=== PATIENT | male | born 1960 | race Caucasian/White ===

== ENCOUNTER → 2016-08-12 | Outpatient (CLI) | payer BC ==
--- NOTE | 2016-08-12 15:20 | NM ---
EXAMINATION TYPE: NM bone/joint limited DATE OF EXAM: 08/12/2016 3:13 PM COMPARISON: NONE HISTORY: Lower back pain TECHNIQUE: After the intravenous administration of 27 mCi Tc 99m MDP. Images acquired 3 hours post injection. Multiple views of pelvis and lumbar spine are submitted. There is no abnormal uptake within the visualized osseous structures to suggest acute process. IMPRESSION: No acute osseous abnormality.
== END | disposition home or self-care (01) ==
LOC: RADNMMAIN 11:15
PROVIDERS: ATTEND Orthopaedic Surgery Orthopaedic Surgery of the Spine
DX: M51.17 Intervertebral disc disorders with radiculopathy, lumbosacral region (principal); M51.16 Intervertebral disc disorders with radiculopathy, lumbar region; M47.817 Spondylosis without myelopathy or radiculopathy, lumbosacral region; M70.61 Trochanteric bursitis, right hip; M70.62 Trochanteric bursitis, left hip; M41.26 Other idiopathic scoliosis, lumbar region
CPT/HCPCS: 78300; A9503

== ENCOUNTER → 2016-11-09 | Outpatient (CLI) | payer BC ==
[2016-11-09 08:51] LABS: Basophils # (A) 0.1 k/uL (0-0.2); Basophils % (A) 1 %; CH 33.6; Eosinophils # (A) 0.3 k/uL (0-0.7); Eosinophils % (A) 4 %; HCT 45.4 % (39.0-53.0); HGB 15.8 gm/dL (13.0-17.5); Luc # (Auto) 0.13; Luc % (Auto) 2; Lymphocytes # (A) 1.2 k/uL (1.0-4.8); Lymphocytes % (A) 21 %; MCH 33.5 pg (25.0-35.0); MCHC 34.8 g/dL (31.0-37.0); MCV 96.2 fL (80.0-100.0); Mean Platelet Volume 7.6; Monocytes # (A) 0.6 k/uL (0-1.0); Monocytes % (A) 9 %; Neutrophils # (A) 3.7 k/uL (1.3-7.7); Neutrophils % (A) 63 %; RBC 4.72 m/uL (4.30-5.90); WBC 5.8 k/uL (3.8-10.6); WBC (Perox) 5.29
[2016-11-09 09:01] LABS: ALT 41 U/L (21-72); AST 32 U/L (17-59); Blood Urea Nitrogen 17 mg/dL (9-20); Non-African American GFR(MDRD) >60 (>60 ml/min/1.73 sqM)
[2016-11-09 16:24] LABS: ANA w/Reflex to Titer NEGATIVE (NEGATIVE)
[2016-11-10 14:02] LABS: Cow's Milk IgE Class CLASS II; Egg White IgE 0.36 kU/L (<0.35); Latex IgE Class CLASS 0; Peanut IgE 0.48 kU/L (<0.35); Potato IgE 0.35 kU/L (<0.35); Potato IgE Class CLASS I; Soybean IgE <0.35 kU/L (<0.35)
== END | disposition home or self-care (01) ==
LOC: LABWHC1 08:20
PROVIDERS: ATTEND Nurse Practitioner Family
DX: R60.0 Localized edema (principal); K72.90 Hepatic failure, unspecified without coma; M35.9 Systemic involvement of connective tissue, unspecified
CPT/HCPCS: 36415; 82565; 82785; 83880; 84165; 84443; 84450; 84460; 84520; 85025; 86001; 86003; 86038; 86160; 86161

== ENCOUNTER → 2018-03-04 | Outpatient (CLI) | payer BC ==
--- NOTE | 2018-03-04 17:45 | US ---
EXAMINATION TYPE: US carotid duplex BILAT DATE OF EXAM: 03/04/2018 COMPARISON: NONE CLINICAL HISTORY: R09.89 Other specified symptoms and signs.... Bruit EXAM MEASUREMENTS: RIGHT: Peak Systolic Velocity (PSV) cm/sec ----- Right CCA: 79.0 ----- Right ICA: 71.2 ----- Right ECA: 110.8 ICA/CCA ratio: 0.9 RIGHT: End Diastole cm/sec ----- Right CCA: 26.7 ----- Right ICA: 31.9 ----- Right ECA: 29.2 LEFT: Peak Systolic Velocity (PSV) cm/sec ----- Left CCA: 83.1 ----- Left ICA: 103.0 ----- Left ECA: 117.3 ICA/CCA ratio: 1.2 LEFT: End Diastole cm/sec ----- Left CCA: 34.7 ----- Left ICA: 39.6 ----- Left ECA: 33.3 VERTEBRALS (direction of flow): Right Vertebral: Antegrade Left Vertebral: Antegrade Rhythm: Normal No significant stenosis seen, no elevated velocities. IMPRESSION: There is antegrade flow in the vertebral arteries. The images and measurements suggest 1 0% stenosis in both internal carotid arteries. Criteria for Assigning % of Stenosis / Diameter reduction (Estimation based on the indirect measurements of the internal carotid artery velocities (ICA PSV). 1. Normal (no stenosis)=ICA PSV < 125 cm/s: ratio < 2.0: ICA EDV<40 cm/s. 2. Less than 50% stenosis=ICA PSV < 125 cm/s: ratio < 2.0: ICA EDV<40 cm/s. 3. 50 to 69% stenosis=ICA PSV of 125 to 230 cm/s: ration 2.0 ? 4.0: ICA EDV 40-100 cm/s. 4. Greater than 70% stenosis to near occlusion= ICA PSV > 230 cm/s: ratio > 4.0: ICA EDV > 100 cm/s. 5. Near occlusion= ICA PSV velocities may be low or undetectable: variable ratio and ICA EDV. 6. Total occlusion=unable to detect flow.
== END | disposition home or self-care (01) ==
LOC: RADUSWWP 16:43
PROVIDERS: ATTEND Family Medicine
DX: I65.23 Occlusion and stenosis of bilateral carotid arteries (principal)
CPT/HCPCS: 93880

== ENCOUNTER → 2018-03-07 | Outpatient (CLI) | payer BC ==
--- NOTE | 2018-03-08 09:36 | ECHOF ---
Referral Reason:R09.89 Other specified symptoms and signs... MEASUREMENTS -------- HEIGHT: 182.9 cm WEIGHT: 97.5 kg BP: RVIDd: 3.4 cm (< 3.3) IVSd: 0.8 cm (0.6 - 1.1) LVIDd: 4.9 cm (3.9 - 5.3) LVPWd: 0.8 cm (0.6 - 1.1) IVSs: 1.1 cm LVIDs: 4.0 cm LVPWs: 1.1 cm LAESV Index (A-L): 21.62 ml/m Ao Diam: 4.4 cm (2.0 - 3.7) AV Cusp: 2.4 cm (1.5 - 2.6) LA Diam: 3.0 cm (2.7 - 3.8) MV EXCURSION: 21.800 mm (> 18.000) MV EF SLOPE: 112 mm/s (70 - 150) EPSS: 0.4 cm MV E Howard: 0.77 m/s MV DecT: 213 ms MV A Howard: 0.73 m/s MV E/A Ratio: 1.06 AR PHT: 500 ms RAP: 5.00 mmHg RVSP: 23.14 mmHg FINDINGS -------- Sinus rhythm. This was a technically adequate study. The left ventricular size is normal. Left ventricular wall thickness is normal. There is mild lamin bal hypokinesis of LV . Overall left ventricular systolic function is mildly impaired with, an EF b etween 45 - 50 %. The right ventricle is mildly enlarged. Normal LA size by volume 22+/-6 ml/m2. RA appears enlarged. Aortic valve is trileaflet and is mildly thickened. There is mild aortic regurgitation. There is no evidence of aortic stenosis. The mitral valve leaflets are mildly thickened. There is trace to mild mitral regurgitation. Trace tricuspid regurgitation present. Right ventricular systolic pressure is normal at < 35 mmHg. There is no evidence of pulmonary hypertension. Trace/mild (physiologic) pulmonic regurgitation. The aortic root is mildy dilated up to 3.8 cm. Normal inferior vena cava with normal inspiratory collapse consistent with estimated right atrial pre ssure of 5 mmHg. There is no pericardial effusion. CONCLUSIONS -------- 1. Sinus rhythm. 2. This was a technically adequate study. 3. The left ventricular size is normal. 4. Left ventricular wall thickness is normal. 5. There is mild global hypokinesis of LV . 6. Overall left ventricular systolic function is mildly impaired with, an EF between 45 - 50 %. 7. The right ventricle is mildly enlarged. 8. Normal LA size by volume 22+/-6 ml/m2. 9. RA appears enlarged. 10. Aortic valve is trileaflet and is mildly thickened. 11. There is mild aortic regurgitation. 12. The mitral valve leaflets are mildly thickened. 13. There is trace to mild mitral regurgitation. 14. Trace tricuspid regurgitation present. 15. Right ventricular systolic pressure is normal at < 35 mmHg. 16. There is no evidence of pulmonary hypertension. 17. Trace/mild (physiologic) pulmonic regurgitation. 18. The aortic root is mildy dilated up to 3.8 cm. 19. There is no pericardial effusion. LAUNCH CHECK OUT: Jhonny Schmidt RDCS
== END | disposition home or self-care (01) ==
LOC: RADECHMAIN 15:29
PROVIDERS: ATTEND Family Medicine
DX: I11.9 Hypertensive heart disease without heart failure (principal); I08.0 Rheumatic disorders of both mitral and aortic valves
CPT/HCPCS: 93306

== ENCOUNTER → 2018-06-03 | Outpatient (CLI) | payer BC ==
--- NOTE | 2018-06-03 10:13 | MR ---
EXAMINATION TYPE: MR lumbar spine wo con DATE OF EXAM: 06/03/2018 COMPARISON: Prior lumbar MRI 04/12/2014 HISTORY: Low back pain, Scoliosis TECHNIQUE: Multiplanar, multisequence images of the lumbar spine were acquired. L1-L2: Normal disc appearance without desiccation. No herniation, protrusion or disc bulging. No ca nal stenosis is present. Foramina are patent bilaterally. L2-L3: Stable in appearance. Mild posterior broad-based disc bulge causes slight anterior mass effect on the thecal sac, no significant central stenosis or foraminal encroachment. L3-L4: Posterior broad-based disc bulge causes mild anterior mass effect on the thecal sac. No signif icant central stenosis or foraminal encroachment. L4-L5: Left posterior paracentral disc bulge is again noted extending to cause some left-sided forami nal encroachment. No significant central stenosis. Lateral extension endplate disc complex also cause s some right-sided foraminal encroachment as on prior. L5-S1: Small posterior disc bulge is noted, no significant central stenosis or change in foraminal en croachment which is again seen due to lateral extension of endplate disc complex bilaterally. Some fa cet arthropathy changes are stable. Lumbar segments are intact. No paraspinal masses are identified. Conus medullaris has a normal appe arance. Lumbar vertebral bodies show preserved height and alignment, there is mild multilevel spondyl osis present with minimal endplate discogenic marrow signal change. Intervertebral disc heights show a similar appearance, similar signal present at the discs. Prominence of the central spinal canal marcelo ws a similar appearance. IMPRESSION: Findings are similar to prior exam. Degenerative disc disease, foraminal encroachment and additional findings above.
== END | disposition home or self-care (01) ==
LOC: RADMRIMAIN 08:06
PROVIDERS: ATTEND Physical Medicine & Rehabilitation
DX: M51.17 Intervertebral disc disorders with radiculopathy, lumbosacral region (principal); M47.26 Other spondylosis with radiculopathy, lumbar region; M46.97 Unspecified inflammatory spondylopathy, lumbosacral region; I10 Essential (primary) hypertension; F06.4 Anxiety disorder due to known physiological condition; M70.61 Trochanteric bursitis, right hip; M70.62 Trochanteric bursitis, left hip
CPT/HCPCS: 72148

== ENCOUNTER 2019-01-12 09:56 | Observation (INO) | payer BC ==
[2019-01-12] MEDS ORDERED: ASPIRIN 81 MG PO STA (10:11)
[2019-01-12] MEDS ORDERED: NITROGLYCERIN OINT 1 INCH/GM PACKET TOPICAL STA (10:11)
--- NOTE | 2019-01-12 10:12 | ED ---
General Adult HPI - General Chief complaint: Chest Pain Stated complaint: Chest Pain Time Seen by Provider: 01/12/19 10:07 Source: patient, RN notes reviewed Mode of arrival: ambulatory Limitations: no limitations - History of Present Illness Initial comments: Patient is a pleasant 58-year-old male presenting to the emergency Department with complaints of chest discomfort. Symptoms have been occurring for the past several weeks. Patient complains of symptoms worsening last night. Symptoms were severe last night. Discomfort is only mild at this time. Patient has discomfort in the lower sternal region with some radiation towards the back and occasionally the neck. There is also occasional radiation to the arms. Patient has some mild dyspnea and sweating which just started today. No nausea. No leg pain or leg swelling. - Related Data Home Medications Medication Instructions Recorded Confirmed Aspirin 81 mg PO DAILY 03/06/15 01/12/19 ALPRAZolam [Xanax] 0.25 mg PO BID PRN 01/12/19 01/12/19 Losartan-Hctz 50-12.5 mg [Hyzaar 1 tab PO DAILY 01/12/19 01/12/19 50-12.5] Vortioxetine Hydrobromide 10 mg PO DAILY 01/12/19 01/12/19 [Trintellix] Allergies Allergy/AdvReac Type Severity Reaction Status Date / Time hydrocodone [From Vicodin] Allergy Nausea & Verified 01/12/19 10:15 Vomiting Review of Systems ROS Statement: Those systems with pertinent positive or pertinent negative responses have been documented in the HPI. ROS Other: All systems not noted in ROS Statement are negative. Past Medical History Past Medical History: GERD/Reflux, Hypertension, Musculoskeletal Disorder Additional Past Medical History / Comment(s): BACK PAIN, recent blood in stools History of Any Multi-Drug Resistant Organisms: None Reported Past Surgical History: Orthopedic Surgery Additional Past Surgical History / Comment(s): LEFT HAND SURG ( A CHILD), COLONOSCOPY, PAIN CLINIC PROCEDURES. Past Anesthesia/Blood Transfusion Reactions: No Reported Reaction, Motion Sickness Additional Past Anesthesia/Blood Transfusion Reaction / Comment(s): occ motion sickness Past Psychological History: No Psychological Hx Reported Smoking Status: Never smoker Past Alcohol Use History: Daily Past Drug Use History: None Reported General Exam Limitations: no limitations Course Vital Signs 01/12/19 01/12/19 09:58 10:55 Temperature 97.6 F Pulse Rate 84 85 Respiratory 20 18 Rate Blood Pressure 162/115 151/104 O2 Sat by Pulse 97 94 L Oximetry EKG Findings - EKG Comments: EKG Findings:: Normal sinus rhythm 86. IN 156. QRS 98. QT 368. QTC 440. Normal axis. Normal QRS. No acute ST change. Medical Decision Making - Medical Decision Making Patient reevaluated and resting comfortably in bed, near symptom-free at this time. Blood pressure is somewhat improved. Patient and family updated on results and plan. Case was discussed in detail with Dr. wallace, covering for , who will admit. - Lab Data Result diagrams: 01/12/19 10:20 01/12/19 10:20 Lab Results 01/12/19 01/12/19 01/12/19 Range/Units 10:20 10:20 10:20 WBC 7.1 (3.8-10.6) k/uL RBC 4.83 (4.30-5.90) m/uL Hgb 15.8 (13.0-17.5) gm/dL Hct 45.8 (39.0-53.0) % MCV 94.9 (80.0-100.0) fL MCH 32.7 (25.0-35.0) pg MCHC 34.5 (31.0-37.0) g/dL RDW 12.9 (11.5-15.5) % Plt Count 202 (150-450) k/uL Neutrophils % 66 % Lymphocytes % 20 % Monocytes % 7 % Eosinophils % 3 % Basophils % 1 % Neutrophils # 4.7 (1.3-7.7) k/uL Lymphocytes # 1.4 (1.0-4.8) k/uL Monocytes # 0.5 (0-1.0) k/uL Eosinophils # 0.2 (0-0.7) k/uL Basophils # 0.1 (0-0.2) k/uL PT 10.2 (9.0-12.0) sec INR 0.9 (<1.2) APTT 24.4 (22.0-30.0) sec D-Dimer 0.19 (<0.60) mg/L FEU Sodium 140 (137-145) mmol/L Potassium 4.2 (3.5-5.1) mmol/L Chloride 105 (98-107) mmol/L Carbon Dioxide 23 (22-30) mmol/L Anion Gap 12 mmol/L BUN 15 (9-20) mg/dL Creatinine 0.87 (0.66-1.25) mg/dL Est GFR (CKD-EPI)AfAm >90 (>60 ml/min/1.73 sqM) Est GFR (CKD-EPI)NonAf >90 (>60 ml/min/1.73 sqM) Glucose 105 H (74-99) mg/dL Calcium 9.9 (8.4-10.2) mg/dL Magnesium 2.3 (1.6-2.3) mg/dL Total Bilirubin 0.7 (0.2-1.3) mg/dL AST 45 (17-59) U/L ALT 62 (21-72) U/L Alkaline Phosphatase 63 (38-126) U/L Creatine Kinase 80 (55-170) U/L Troponin I (0.000-0.034) ng/mL NT-Pro-B Natriuret Pep pg/mL Total Protein 7.6 (6.3-8.2) g/dL Albumin 4.8 (3.5-5.0) g/dL Amylase 61 (30-110) U/L Lipase 60 (23-300) U/L 01/12/19 01/12/19 Range/Units 10:20 10:20 WBC (3.8-10.6) k/uL RBC (4.30-5.90) m/uL Hgb (13.0-17.5) gm/dL Hct (39.0-53.0) % MCV (80.0-100.0) fL MCH (25.0-35.0) pg MCHC (31.0-37.0) g/dL RDW (11.5-15.5) % Plt Count (150-450) k/uL Neutrophils % % Lymphocytes % % Monocytes % % Eosinophils % % Basophils % % Neutrophils # (1.3-7.7) k/uL Lymphocytes # (1.0-4.8) k/uL Monocytes # (0-1.0) k/uL Eosinophils # (0-0.7) k/uL Basophils # (0-0.2) k/uL PT (9.0-12.0) sec INR (<1.2) APTT (22.0-30.0) sec D-Dimer (<0.60) mg/L FEU Sodium (137-145) mmol/L Potassium (3.5-5.1) mmol/L Chloride (98-107) mmol/L Carbon Dioxide (22-30) mmol/L Anion Gap mmol/L BUN (9-20) mg/dL Creatinine (0.66-1.25) mg/dL Est GFR (CKD-EPI)AfAm (>60 ml/min/1.73 sqM) Est GFR (CKD-EPI)NonAf (>60 ml/min/1.73 sqM) Glucose (74-99) mg/dL Calcium (8.4-10.2) mg/dL Magnesium (1.6-2.3) mg/dL Total Bilirubin (0.2-1.3) mg/dL AST (17-59) U/L ALT (21-72) U/L Alkaline Phosphatase (38-126) U/L Creatine Kinase (55-170) U/L Troponin I <0.012 (0.000-0.034) ng/mL NT-Pro-B Natriuret Pep 60 pg/mL Total Protein (6.3-8.2) g/dL Albumin (3.5-5.0) g/dL Amylase (30-110) U/L Lipase (23-300) U/L - Radiology Data Radiology results: image reviewed (Chest x-ray shows no acute process) Disposition Clinical Impression: Chest pain Disposition: ADMITTED IP TO THIS HOSP Is patient prescribed a controlled substance at d/c from ED?: No Referrals: Jerel Yeboah MD [Primary Care Provider] - 1-2 days Decision Time: 12:50
[2019-01-12 10:40] LABS: Basophils # (A) 0.1 k/uL (0-0.2); Basophils % (A) 1 %; Eosinophils # (A) 0.2 k/uL (0-0.7); Eosinophils % (A) 3 %; HCT 45.8 % (39.0-53.0); HGB 15.8 gm/dL (13.0-17.5); Lymphocytes # (A) 1.4 k/uL (1.0-4.8); Lymphocytes % (A) 20 %; MCH 32.7 pg (25.0-35.0); MCHC 34.5 g/dL (31.0-37.0); MCV 94.9 fL (80.0-100.0); Mean Platelet Volume 7.5; Monocytes # (A) 0.5 k/uL (0-1.0); Monocytes % (A) 7 %; Neutrophils # (A) 4.7 k/uL (1.3-7.7); Neutrophils % (A) 66 %; Platelet Count 202 k/uL (150-450); RBC 4.83 m/uL (4.30-5.90); RDW 12.9 % (11.5-15.5); WBC 7.1 k/uL (3.8-10.6)
[2019-01-12 10:53] LABS: ALT 62 U/L (21-72); AST 45 U/L (17-59); African American GFR (CKD) >90 (>60 ml/min/1.73 sqM); Albumin 4.8 g/dL (3.5-5.0); Alkaline Phosphatase 63 U/L (38-126); Amylase 61 U/L (30-110); Anion Gap 12 mmol/L; Blood Urea Nitrogen 15 mg/dL (9-20); Calcium 9.9 mg/dL (8.4-10.2); Carbon Dioxide 23 mmol/L (22-30); Chloride 105 mmol/L (98-107); Creatine Kinase 80 U/L (55-170); Glucose 105 mg/dL (74-99); Magnesium 2.3 mg/dL (1.6-2.3); Potassium 4.2 mmol/L (3.5-5.1); Sodium 140 mmol/L (137-145); Total Bilirubin 0.7 mg/dL (0.2-1.3); Total Protein 7.6 g/dL (6.3-8.2)
[2019-01-12 10:55] LABS: D-Dimer 0.19 mg/L FEU (<0.60); INR 0.9 (<1.2); Partial Thromboplastin Time 24.4 sec (22.0-30.0); Prothrombin Time 10.2 sec (9.0-12.0)
--- NOTE | 2019-01-12 11:03 | XR ---
EXAMINATION TYPE: XR chest 2V DATE OF EXAM: 01/12/2019 COMPARISON: Prior chest x-ray is unavailable HISTORY: Chest pain TECHNIQUE: Frontal and lateral views of the chest are obtained. FINDINGS: There is no focal air space opacity, pleural effusion, or pneumothorax seen. The cardiac silhouette size is within normal limits. The osseous structures are intact. There are overlying car diac leads. Patient is rotated. IMPRESSION: No acute cardiopulmonary process.
[2019-01-12] MEDS ORDERED: NITROGLYCERIN SL TABS 0.4 MG TAB SUBLINGUAL PRN (12:50)
[2019-01-12] MEDS ORDERED: METOPROLOL TARTRATE 25 MG TAB PO STA (12:52)
[2019-01-12] MEDS ORDERED: ALPRAZolam 0.25 MG TAB PO PRN (12:52)
[2019-01-12 13:58] VITALS: BMI 29.8
[2019-01-12] MEDS ORDERED: RX INFO: IV CONTRAST WAS GIVEN 1 EACH MISC MISCELLANE PRN (14:39)
[2019-01-12] MEDS ORDERED: ACETAMINOPHEN TAB 500 MG TAB PO STA (14:40)
--- NOTE | 2019-01-12 14:48 | P.CRDCN ---
History of Present Illness History of present illness: This is a pleasant 58 showed male past medical history significant for hypertension and gastroesophageal reflux disease. 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 He states he drinks alcohol regularly at least a couple of beers a night. We have asked him in consultation secondary to chest discomfort. He states for the previous month he has been experiencing a tight squeezing sensation in the midsternal region. Over the course of the previous month the pain seems to be increasing in intensity. Yesterday and then again this morning the pain was extremely excruciating radiated through to his back and up his spine. He became extremely diaphoretic, short of breath and pale. No specific aggravating or alleviating factor. There is radiation of the pain, arm or into the neck/jaw. He denies associated palpitations, nausea, vomiting or dizziness. Blood pressure and I will was 162/115. Patient underwent an echocardiogram in March 2019 revealing preserved LV systolic function with ejection fraction 45-50%, dilated aortic root at 3.8 cm. He is seen and examined resting comfortable sitting up in bed in no acute distress. His pain has subsided since admission. He was given nitropaste and lopressor on admission. Blood pressure has come down nicely however he has a headache. EKG on arrival reveals sinus mechanism with no acute ST or T wave abnormalities noted heart rate of 86. Chest x-ray is negative for acute cardiopulmonary process. Laboratory data reviewed, CBC unremarkable, d-dimer 0.19, sodium 140, potassium 4.2, creatinine 0.87, magnesium 2.3, cardiac enzymes negative 1, proBNP 60 Current daily cardiac medications include aspirin 81 mg daily and losartan/HCTZ 50/12.5 mg daily. At the time of my exam: CONSTITUTIONAL: Denies fever. Denies chills. EYES: Denies blurred vision. Denies vision changes. Denies eye pain. EARS, NOSE, MOUTH & THROAT: Denies headache. Denies sore throat. Denies ear pain. CARDIOVASCULAR: Denies chest pain. Denies shortness of breath. Denies orthopnea. Denies PND. Denies palpitations. RESPIRATORY: Denies cough. GASTROINTESTINAL: Denies abdominal pain. Denies diarrhea. Denies constipation. Denies nausea. Denies vomiting. MUSCULOSKELETAL: Denies myalgias. INTEGUMENTARY: Denies pruitis. Denies rash. NEUROLOGIC: Denies numbness. Denies tingling. Denies weakness. PSYCHIATRIC: Denies anxiety. Denies depression. ENDOCRINE: Denies fatigue. Denies weight change. Denies polydipsia. Denies polyurina. GENITOURINARY: Denies burning, hematuria or urgency with micturation. HEMATOLOGIC: Denies history of anemia. Denies bleeding. Blood pressure 127/78 heart rate 91 afebrile maintaining oxygen saturation on room air GENERAL: This is a 58-year-old male in no apparent distress at the time of my examination. HEENT: Head is atraumatic, normocephalic. Pupils are equal, round. Sclerae anicteric. Conjunctivae are clear. Mucous membranes of the mouth are moist. Neck is supple. There is no jugular venous distention. No carotid bruit is heard. LUNGS: Clear to auscultation no wheezes, rales or rhonchi. No chest wall tenderness is noted on palpation or with deep breathing. HEART: Regular rate and rhythm without murmurs, rubs or gallops. S1 and S2 hear d. ABDOMEN: Soft, nontender. Bowel sounds are heard. No organomegaly noted. EXTREMITIES: No evidence of peripheral edema and no calf tenderness noted. VASCULAR: Radial and dorsalis pedis pulses palpated, no evidence of clubbing. NEUROLOGIC: Patient is awake, alert and oriented x3. ASSESSMENT Chest pain, concerning for underlying aortic pathology given his dilated aortic root on previous echo, hypertension and nature of his symptoms. Hypertension Daily alcohol intake Gastroesophagel reflux disease PLAN Obtain STAT CT of the chest to assess aorta. Repeat 2D echocardiogram and doppler study to assess cardiac structure and function. Continue to obtain serial cardiac enzymes to rule out an acute event. Check lipid panel. Recommend complete alcohol cessation. Further recommendations to follow based on clinical course. Thank you kindly for this consultation. Nurse Practitioner note has been reviewed, I agree with a documented findings and plan of care. Patient was seen and examined. Past Medical History Past Medical History: GERD/Reflux, Hypertension Additional Past Medical History / Comment(s): Chronic back pain/bulging discs, chronic bilateral knee pain, arthritis in back and bilateral knees. History of Any Multi-Drug Resistant Organisms: None Reported Past Surgical History: Orthopedic Surgery, Tonsillectomy Additional Past Surgical History / Comment(s): LEFT HAND SURG ( A CHILD), COLONOSCOPY, PAIN CLINIC PROCEDURES, L KNEE ARTHROSCOPY.. Past Anesthesia/Blood Transfusion Reactions: No Reported Reaction, Motion Sickness Additional Past Anesthesia/Blood Transfusion Reaction / Comment(s): occ motion sickness Smoking Status: Never smoker - Past Family History Father History Unknown: Yes Additional Family Medical History / Comment(s): Pt never met his father. Mother Family Medical History: No Reported History Additional Family Medical History / Comment(s): Mother is healthy. Medications and Allergies Home Medications Medication Instructions Recorded Confirmed Type Aspirin 81 mg PO DAILY 03/06/15 01/12/19 History ALPRAZolam [Xanax] 0.25 mg PO BID PRN 01/12/19 01/12/19 History Losartan-Hctz 50-12.5 mg [Hyzaar 1 tab PO DAILY 01/12/19 01/12/19 History 50-12.5] Vortioxetine Hydrobromide 10 mg PO DAILY 01/12/19 01/12/19 History [Trintellix] Allergies Allergy/AdvReac Type Severity Reaction Status Date / Time hydrocodone [From Vicodin] Allergy Nausea & Verified 01/12/19 10:15 Vomiting Physical Exam Vitals: Vital Signs Temp Pulse Pulse Resp BP BP Pulse Ox 01/12/19 14:08 98 01/12/19 13:39 98.1 F 91 18 127/78 95 01/12/19 13:27 98.2 F 01/12/19 13:18 98.9 F 92 16 129/92 97 01/12/19 12:51 83 18 135/98 95 01/12/19 10:55 85 18 151/104 94 L 01/12/19 09:58 97.6 F 84 20 162/115 97 Intake and Output 01/11/19 01/12/19 01/12/19 22:59 06:59 14:59 Other: Voiding Method Toilet Weight 99.79 kg Results 01/12/19 10:20 01/12/19 10:20 Cardiac Enzymes 01/12/19 01/12/19 Range/Units 10:20 10:20 AST 45 (17-59) U/L Troponin I <0.012 (0.000-0.034) ng/mL Coagulation 01/12/19 Range/Units 10:20 PT 10.2 (9.0-12.0) sec APTT 24.4 (22.0-30.0) sec CBC 01/12/19 Range/Units 10:20 WBC 7.1 (3.8-10.6) k/uL RBC 4.83 (4.30-5.90) m/uL Hgb 15.8 (13.0-17.5) gm/dL Hct 45.8 (39.0-53.0) % Plt Count 202 (150-450) k/uL Comprehensive Metabolic Panel 01/12/19 Range/Units 10:20 Sodium 140 (137-145) mmol/L Potassium 4.2 (3.5-5.1) mmol/L Chloride 105 (98-107) mmol/L Carbon Dioxide 23 (22-30) mmol/L BUN 15 (9-20) mg/dL Creatinine 0.87 (0.66-1.25) mg/dL Glucose 105 H (74-99) mg/dL Calcium 9.9 (8.4-10.2) mg/dL AST 45 (17-59) U/L ALT 62 (21-72) U/L Alkaline Phosphatase 63 (38-126) U/L Total Protein 7.6 (6.3-8.2) g/dL Albumin 4.8 (3.5-5.0) g/dL Current Medications Generic Name Dose Route Start Last Admin Trade Name Freq PRN Reason Stop Dose Admin Acetaminophen 500 mg 01/12/19 14:40 Tylenol Tab PO 01/12/19 14:41 ONCE STA Alprazolam 0.25 mg 01/12/19 12:52 Xanax PO BID PRN Anxiety Aspirin 325 mg 01/13/19 09:00 Aspirin PO DAILY SASHA HCTZ/Losartan Potassium 1 each 01/13/19 09:00 Hyzaar 50-12.5 PO DAILY [facility] Miscellaneous Information 1 each 01/12/19 14:39 Rx Info: Iv Contrast Was Given MISCELLANE 01/14/19 14:40 DAILY PRN Per Protocol Nitroglycerin 0.4 mg 01/12/19 12:50 Nitrostat SUBLINGUAL Q5M PRN Chest Pain Nitroglycerin 1 inch 01/12/19 18:00 Nitro-Bid Oint TOPICAL Q6HR [facility] Sodium Chloride 10 ml 01/12/19 21:00 Saline Flush IV BID SASHA Vortioxetine 10 mg 01/13/19 09:00 Trintellix PO DAILY SASHA Intake and Output 01/11/19 01/12/19 01/12/19 22:59 06:59 14:59 Other: Voiding Method Toilet Weight 99.79 kg Patient Weight 01/13/19 06:59 Weight 99.79 kg 01/12/19 10:20 01/12/19 10:20
--- NOTE | 2019-01-12 15:26 | CT ---
EXAMINATION TYPE: CT chest w con DATE OF EXAM: 01/12/2019 COMPARISON: None HISTORY: Chest pain CT DLP: 571.9 mGycm Automated exposure control for dose reduction was used. CONTRAST: CT scan of the chest is performed with IV Contrast, patient injected with 100 mL of Isovue 300. FINDINGS: LUNGS: The lungs are grossly clear, there is no concerning parenchymal mass or nodule identified. T here is no pleural effusion or pneumothorax seen. The tracheobronchial tree is patent. MEDIASTINUM: There are no greater than 1 cm hilar or mediastinal lymph nodes. No pericardial effusi on is seen. Thoracic aorta is of normal caliber. The heart is not enlarged. UPPER ABDOMEN: Fatty hepatic infiltration identified. OTHER: No additional significant abnormality is seen. IMPRESSION: No acute process seen to account for the patient's symptoms.
[2019-01-12] MEDS ORDERED: ACETAMINOPHEN TAB 325 MG TAB PO PRN (16:19)
[2019-01-12] MEDS ORDERED: NITROGLYCERIN OINT 1 INCH/GM PACKET TOPICAL SCH (18:00)
[2019-01-12] MEDS ORDERED: ENOXAPARIN 40 MG/0.4 ML SYRINGE SQ SCH (22:00)
--- NOTE | 2019-01-12 22:02 | P.HPIM ---
History of Present Illness H&P Date: 01/12/19 Chief Complaint: No chest pain Presenting complaint: Lower chest/epigastric pain History of presenting complaint: This is a very pleasant 58-year-old patient who follows with Dr. ordaz out of [place]. Chronic stable medical conditions include GERD, hypertension, lower back pain from herniated disc. Patient for 1 month has been noticing some tightness in the lower chest epigastric area. Sometimes it goes to the back. Yesterday patient woke up couple of times in the brachial in a sweat sometimes breathing a bit heavy. Patient also gone through between the shoulder blades. Decided to come in to get his cardiac checked up. No prior cardiac history in the past. Patient does have reflux symptoms but this is somewhat different he thinks. Patient does not smoke but he chews tobacco. Also drinks about 12 beers a week. Patient did have a computed tomography scan of the chest with contrast earlier that was negative. Review of systems: GEN.: Tired EYES: None HEENT: None NECK: None RESPIRATORY: [As above CARDIOVASCULAR: As above GASTROINTESTINAL: Reflux GENITOURINARY: None MUSCULOSKELETAL: Pain LYMPHATICS: None HEMATOLOGICAL: None PSYCHIATRY: None NEUROLOGICAL: None Past medical history to include: GERD, hypertension, lower back herniated disc, chronic knee pain, Family history: Reviewed, unremarkable Social history: , does not smoke cigars. Has chewed tobacco since 97 for age of 14. Takes about 40-50 beers a week. Works at [employer] Physical examination: VITAL SIGNS: 97.6, 84, 20, 151/104, 94% room air GENERAL: Average built, sitting up, comfortable. EYES: Pupils equal. Conjunctiva normal. HEENT: External appearance of nose and ears normal, oral cavity grossly normal. NECK: JVD not raised; masses not palpable. HEART: First and second heart sounds are normal; no edema. LUNGS: Respiratory rate normal; clear to auscultation. ABDOMEN: Soft, nontender, liver spleen not palpable, no masses palpable. PSYCH: Alert and oriented x3; mood and affect normal. NEUROLOGICAL: Cranial nerves grossly intact; no facial asymmetry, power and sensation grossly intact. LYMPHATICS: No lymph nodes palpable in the axilla and neck, Investigations: White count 7.1 hemoglobin 15.8 potassium 4.2 creatinine 0.87 Troponin I 2 negative EKG tracing personally reviewed by me-normal sinus rhythm Chest x-ray film personally reviewed by me-lung beckford are clear CT of the chest with contrast-negative Assessment: -Possible unstable angina and patient whose cardiac risk factors include hypertension, chewing tobacco. Patient's troponins are negative EKGs unremarkable. patient history is rather suggestive. If the cardiac workup is negative then patient is to have her age rule out a gastric cause. Example of peptic ulcer disease -GERD -Essential hypertension -Chronic herniated lumbar disc -Chronic nicotine dependence, patient does tobacco dipping Plan: Cardiogenic was consulted. Patient be made nothing by mouth from midnight. Will need a stress test at least. If patient is cleared by cardiology then patient will need a EGD. Care was discussed with the patient. Questions were answered. We'll also put the patient on Pepcid. Past Medical History Past Medical History: GERD/Reflux, Hypertension Additional Past Medical History / Comment(s): Chronic back pain/bulging discs, chronic bilateral knee pain, arthritis in back and bilateral knees. History of Any Multi-Drug Resistant Organisms: None Reported Past Surgical History: Orthopedic Surgery, Tonsillectomy Additional Past Surgical History / Comment(s): LEFT HAND SURG ( A CHILD), COLONOSCOPY, PAIN CLINIC PROCEDURES, L KNEE ARTHROSCOPY.. Past Anesthesia/Blood Transfusion Reactions: No Reported Reaction, Motion Sickness Additional Past Anesthesia/Blood Transfusion Reaction / Comment(s): occ motion sickness Smoking Status: Never smoker - Past Family History Father History Unknown: Yes Additional Family Medical History / Comment(s): Pt never met his father. Mother Family Medical History: No Reported History Additional Family Medical History / Comment(s): Mother is healthy. Medications and Allergies Home Medications Medication Instructions Recorded Confirmed Type Aspirin 81 mg PO DAILY 03/06/15 01/12/19 History ALPRAZolam [Xanax] 0.25 mg PO BID PRN 01/12/19 01/12/19 History Losartan-Hctz 50-12.5 mg [Hyzaar 1 tab PO DAILY 01/12/19 01/12/19 History 50-12.5] Vortioxetine Hydrobromide 10 mg PO DAILY 01/12/19 01/12/19 History [Trintellix] Allergies Allergy/AdvReac Type Severity Reaction Status Date / Time hydrocodone [From Vicodin] Allergy Nausea & Verified 01/12/19 10:15 Vomiting Physical Exam Vitals: Vital Signs Temp Pulse Pulse Resp BP BP Pulse Ox 01/12/19 20:00 98.3 F 77 152/93 95 01/12/19 16:00 98.4 F 72 113/73 95 01/12/19 14:08 98 01/12/19 13:39 98.1 F 91 18 127/78 95 01/12/19 13:27 98.2 F 01/12/19 13:18 98.9 F 92 16 129/92 97 01/12/19 12:51 83 18 135/98 95 01/12/19 10:55 85 18 151/104 94 L 01/12/19 09:58 97.6 F 84 20 162/115 97 Intake and Output 01/12/19 01/12/19 01/12/19 06:59 14:59 22:59 Other: Voiding Method Toilet Toilet Weight 99.79 kg Results CBC & Chem 7: 01/12/19 10:20 01/12/19 10:20 Labs: Abnormal Lab Results - Last 24 Hours (Table) 01/12/19 Range/Units 10:20 Glucose 105 H (74-99) mg/dL Thrombosis Risk Factor Assmnt - Choose All That Apply Any of the Below Risk Factors Present?: Yes Each Factor Represents 1 point: Age 41-60 years, Obesity (BMI >25) Other Risk Factors: No Other congenital or acquired thrombophilia - If yes, enter type in comment: No Thrombosis Risk Factor Assessment Total Risk Factor Score: 2 Thrombosis Risk Factor Assessment Level: Low Risk
[2019-01-13 02:59] LABS: Cholesterol 211 mg/dL (<200); HDL Cholesterol 43 mg/dL (40-60); LDL Cholesterol,Calculated 124 mg/dL (0-99); Triglycerides 222 mg/dL (<150)
[2019-01-13 08:07] VITALS: BP 142/89; PULSE 86; RESP 18; TEMP 97.9
--- NOTE | 2019-01-13 08:11 | P.PN ---
Progress Note - Text Progress Note Date: 01/13/19 This is a pleasant 58-year-old gentleman with history of hypertension who presented to the hospital with a chest discomfort. On follow-up with him today, he is asymptomatic. He was ruled out for acute coronary event. The EKG showed sinus rhythm without any significant ST or T- wave abnormalities. The cardiac enzymes were checked and came in to be unremarkable. The computed tomography scan showed no acute abnormalities. I recommended proceeding with a stress test but the patient would rather and refer to go home and have the test done as an outpatient. Having said that, I did recommend the patient to get up and around walking the hallway and if he is asymptomatic he might be able to be discharged home.
[2019-01-13] MEDS ORDERED: ASPIRIN 81 MG PO SCH (09:00)
[2019-01-13] MEDS ORDERED: VORTIOXETINE HYDROBROMIDE 10 MG TABLET PO SCH (09:00)
[2019-01-13] MEDS ORDERED: ASPIRIN 325 MG TAB PO SCH (09:00)
[2019-01-13] MEDS ORDERED: LOSARTAN-HCTZ 50-12.5 MG 1 EACH TAB PO SCH (09:00)
--- NOTE | 2019-01-13 09:42 | P.DS ---
Providers Date of admission: 01/12/19 12:50 Attending physician: Efren Mondragon Consults: 01/12/19 12:50 Consult Physician Urgent Consulting Provider: Christiano Sepulveda Consult Reason/Comments: cp Do you want consulting provider notified?: Yes Primary care physician: Jerel Yeboah [facility] Course: On-call hospitalist covering for Dr. Mondragon Diagnoses: -Chest pain. Acute coronary syndrome has been ruled out. [employer] recommended stress test which is going to be done as an outpatient. -Alcohol abuse, patient was counseled. He doesn't want to quit as he drinks small amount of alcohol as he states. -GERD -Hypertension -Chronic low back pain and herniated to disc hospital course: This is a pleasant 58 years old male with past medical history of hypertension, low back pain and herniated disc and GERD. Presents with chest pain Patient hemodynamically was stable signs and labs were unremarkable with negative for troponin x3. His d-dimer was within normal limits at 0.19 and the suspicion for pulmonary embolism was low. EKG was showing sinus rhythm with no significant ST-T changes. [employer] recommended patient to proceed with stress test however patient wanted to go home and do the test as an outpatient. Cardiology team were suspecting aortic disease however computed tomography scan of the chest with contrast was showing no acute process to account for the patient's symptoms and that the thoracic aorta is of normal caliber as per radiologist. Patient was cleared for discharge by cardiology team. Patient will be discharged on aspirin and his home medication. Problems and management plan were discussed with the patient and he verbalized understanding and acceptance Patient was found stable and can be discharged home however he needs follow-up as an outpatient. 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 Patient agrees with the appointments and timing made for him for cardiology office and says he will follow-up. Patient states that he has all his films at home. Gen: patient is a AAOx3, no distress CVS: S1-S2, RRR, no murmur Lungs: B/L CTA, no wheezing Abdomen: soft, no distention, no tenderness, positive bowel sounds Extremity: no leg edema or induration Time spent more than 35 minutes Plan - Discharge Summary Discharge Rx Participant: No New Discharge Prescriptions: No Action Aspirin 81 mg PO DAILY Vortioxetine Hydrobromide [Trintellix] 10 mg PO DAILY Losartan-Hctz 50-12.5 mg [Hyzaar 50-12.5] 1 tab PO DAILY ALPRAZolam [Xanax] 0.25 mg PO BID PRN PRN Reason: Anxiety Discharge Medication List Aspirin 81 mg PO DAILY 03/06/15 [History] ALPRAZolam [Xanax] 0.25 mg PO BID PRN 01/12/19 [History] Losartan-Hctz 50-12.5 mg [Hyzaar 50-12.5] 1 tab PO DAILY 01/12/19 [History] Vortioxetine Hydrobromide [Trintellix] 10 mg PO DAILY 01/12/19 [History] Follow up Appointment(s)/Referral(s): Jerel Yeboah MD [Primary Care Provider] - 1-2 days
--- NOTE | 2019-01-13 12:01 | ECHOF ---
Referral Reason:cp, sob MEASUREMENTS -------- HEIGHT: 182.9 cm WEIGHT: 99.8 kg BP: RVIDd: 3.4 cm (< 3.3) IVSd: 1.3 cm (0.6 - 1.1) LVIDd: 4.0 cm (3.9 - 5.3) LVPWd: 1.2 cm (0.6 - 1.1) IVSs: 1.6 cm LVIDs: 3.3 cm LVPWs: 1.7 cm LA Diam: 3.7 cm (2.7 - 3.8) LAESV Index (A-L): 21.26 ml/m Ao Diam: 3.9 cm (2.0 - 3.7) AV Cusp: 2.5 cm (1.5 - 2.6) MV EXCURSION: 28.959 mm (> 18.000) MV EF SLOPE: 136 mm/s (70 - 150) EPSS: 0.4 cm MV E Howard: 0.61 m/s MV DecT: 256 ms MV A Howard: 0.84 m/s MV E/A Ratio: 0.72 AR PHT: 671 ms RAP: 5.00 mmHg RVSP: 23.26 mmHg FINDINGS -------- Sinus rhythm. This was a technically adequate study. The left ventricular size is normal. There is mild concentric left ventricular hypertrophy. Overa ll left ventricular systolic function is normal with, an EF between 60 - 65 %. The right ventricle is mildly enlarged. Normal LA size by volume 22+/-6 ml/m2. The right atrium is normal in size. Aneurysmal Interatrial septum. There is mild aortic valve sclerosis. There is [id number] aortic regurgitation. The mitral valve is normal. Trace tricuspid regurgitation present. Trace/mild (physiologic) pulmonic regurgitation. The aortic root is dilated measuring 3.9cm. IVC Not well visulized. There is no pericardial effusion. CONCLUSIONS -------- 1. Sinus rhythm. 2. This was a technically adequate study. 3. The left ventricular size is normal. 4. There is mild concentric left ventricular hypertrophy. 5. Overall left ventricular systolic function is normal with, an EF between 60 - 65 %. 6. The right ventricle is mildly enlarged. 7. Normal LA size by volume 22+/-6 ml/m2. 8. The right atrium is normal in size. 9. Aneurysmal Interatrial septum. 10. There is mild aortic valve sclerosis. 11. There is nudw-ot-wkzrdtkh aortic regurgitation. 12. The mitral valve is normal. 13. Trace tricuspid regurgitation present. 14. Trace/mild (physiologic) pulmonic regurgitation. 15. The aortic root is dilated measuring 3.9cm. 16. IVC Not well visulized. 17. There is no pericardial effusion. ORGAN ASSEMBLER: Karolyn Archer RDCS
== END 2019-01-13 10:00 | disposition home or self-care (01) ==
LOC: EC 09:56 → 1SOBS 12:50
PROVIDERS: ADMIT Hospitalist; ATTEND Hospitalist
DX: R07.89 Other chest pain (principal); R51 Headache; R10.13 Epigastric pain; R06.02 Shortness of breath; R06.09 Other forms of dyspnea; R61 Generalized hyperhidrosis; F10.10 Alcohol abuse, uncomplicated; K21.9 Gastro-esophageal reflux disease without esophagitis; I10 Essential (primary) hypertension; G89.29 Other chronic pain; M51.26 Other intervertebral disc displacement, lumbar region; M17.0 Bilateral primary osteoarthritis of knee; M46.90 Unspecified inflammatory spondylopathy, site unspecified; E66.9 Obesity, unspecified; Z68.29 Body mass index [BMI] 29.0-29.9, adult; F17.220 Nicotine dependence, chewing tobacco, uncomplicated; Z79.82 Long term (current) use of aspirin; Z79.899 Other long term (current) drug therapy; Z88.5 Allergy status to narcotic agent
CPT/HCPCS: 96372; 99285; 36415; 93005; 93306; 85379; 83880; 80061; 80053; 82150; 82550; 83690; 83735; 84484; 85025; 85610; 85730; 71046; 71260; G0378 ×2; J1650; Q9967

== ENCOUNTER 2020-01-12 08:31 | Day surgery (SDC) | payer BC ==
[2020-01-11 09:33] VITALS: BMI 31.1
[2020-01-12] MEDS ORDERED: LACTATED RINGERS 1,000 ML IV ONE (08:54)
[2020-01-12 09:06] VITALS: RESP 16; TEMP 97.4
[2020-01-12] MEDS ORDERED: PROPOFOL 10 MG/ML 20 ML VIAL IV ONE (09:55)
--- NOTE | 2020-01-12 10:14 | P.PCN ---
Date of Procedure: 01/12/20 Procedure(s) Performed: BRIEF HISTORY: Patient is a 59-year-old, pleasant, 8 male scheduled for an upper endoscopy as a part of evaluation of long-standing history of GERD of several years duration. However recently has been having severe epigastric pain and chest pain despite being on omeprazole 20 mg twice daily as well as severe passive regurgitation. His and scheduled for an upper endoscopy to evaluate further.. PROCEDURE PERFORMED: Esophagogastroduodenoscopy with biopsy. PREOPERATIVE DIAGNOSIS: Long-standing history of GERD/were seen regurgitation and severe heartburn. IV sedation per anesthesia. PROCEDURE: After informed consent was obtained, the patient was brought into the endoscopy unit. IV sedation was administered by Anesthesia under continuous monitoring. Initially the Olympus GIF-140 video endoscope was inserted into the mouth. Esophagus intubated without any difficulty. It was gradually advanced into the stomach and duodenum and carefully examined. The bulb and the second part of the duodenum appeared normal. The scope at this time was withdrawn to the stomach, adequately insufflated with air, and upon careful examination, mucosa of the antrum, had mild gastritis and biopsies were done from this area. The body, cardia and the fundus appeared normal. The scope was then withdrawn into the esophagus. The GE junction was located at 43 cm from the incisors. The esophagus appeared normal. There was no evidence of Irizarry's esophagus. Biopsies were done from the distal esophagus. There were no erosions or ulcerations seen and the patient tolerated the procedure well. IMPRESSION: 1. Normal-appearing esophagus with no evidence of esophagitis. 2. Mild antral gastritis. RECOMMENDATIONS: The findings of this examination were discussed with the patient as well as his family. He was advised to continue with Protonix 40 mg twice daily and will and Carafate 1 g 4 times daily. He'll be seen in office in 6 weeks.].
[2020-01-12 10:40] VITALS: BP 128/89; PULSE 66
== END 2020-01-12 11:14 | disposition home or self-care (01) ==
LOC: ORWHC2ENDO 08:31
PROVIDERS: ATTEND Internal Medicine Gastroenterology
DX: K29.50 Unspecified chronic gastritis without bleeding (principal); K31.9 Disease of stomach and duodenum, unspecified; K21.9 Gastro-esophageal reflux disease without esophagitis; I10 Essential (primary) hypertension; M19.90 Unspecified osteoarthritis, unspecified site; F41.9 Anxiety disorder, unspecified; F17.220 Nicotine dependence, chewing tobacco, uncomplicated; Z88.8 Allergy status to other drugs, medicaments and biological substances; Z88.5 Allergy status to narcotic agent; Z79.899 Other long term (current) drug therapy; Z79.82 Long term (current) use of aspirin; Z79.1 Long term (current) use of non-steroidal anti-inflammatories (NSAID); Z87.898 Personal history of other specified conditions
CPT/HCPCS: 88305; 43239; J2704

== ENCOUNTER → 2023-02-23 | Day surgery (SDC) | payer BC ==
[~2023-02-23] MED LIST: ALPRAZolam 0.25 MG TAB PO PRN; ALPRAZolam 0.5 MG TAB PO PRN; ASPIRIN 325 MG TAB PO STA; ASPIRIN 81 MG PO SCH; ATORVASTATIN 80 MG TAB PO SCH; ATROPINE SULFATE 0.1 MG/ML 10ML SYRINGE IV PRN; CHOLECALCIFEROL 25 MCG (1000 IU) TABLET PO SCH; CLOPIDOGREL 75 MG TAB PO ONE; CLOPIDOGREL 75 MG TAB PO SCH; HEPARIN SODIUM,PORCINE (1 ML) 2,500 UNIT in SODIUM CHLORIDE 0.9% 250 ML IRRIGATION PRN; HEPARIN SODIUM,PORCINE 10,000 UNIT in SODIUM CHLORIDE 0.9% 1,000 ML IRRIGATION PRN; IOPAMIDOL-370 100ML BTL INJ ONE; LIDOCAINE 1% INJ 10MG/ML (20 ML MDV) SQ ONE; LOSARTAN 50 MG TAB PO SCH; MAG HYDROX/AL HYDROX/SIMETH 30 ML CUP PO PRN; METOPROLOL SUCCINATE (ER) 25 MG TAB.ER.24H PO SCH; NITROGLYCERIN 1000MCG/10ML SYRINGE INTRACORON ONE; NITROGLYCERIN SL TABS 0.4 MG TAB SUBLINGUAL PRN; NON FORMULARY DRUG (Mv-Min/Folic/K1/Lycopen/Lutein [Centrum Silver Men Tablet] 1 EACH Tabl PO SCH; PANTOPRAZOLE 40 MG TABLET PO SCH; RX INFO: IV CONTRAST WAS GIVEN 1 EACH MISC MISCELLANE PRN; SODIUM CHLORIDE 0.9% 1,000 ML IV ONE; SODIUM CHLORIDE 0.9% 1,000 ML in EMPTY BAG 1 BAG IV SCH; VERAPAMIL SYRINGE (5 MG/10 ML) INTRAARTER ONE; ZOLPIDEM 5 MG TAB PO PRN; amLODIPine 2.5 MG TAB PO SCH; hydroCHLOROthiazide 12.5 MG CAP PO SCH
[2023-02-23 09:37] VITALS: RESP 16; TEMP 98
[2023-02-23] MEDS: MIDAZOLAM 2 MG/2 ML VIAL IVP ONE ×2 (12:38→12:42)
[2023-02-23] MEDS: fentaNYL (PF) 50 MCG/ML 2 ML AMP IVP ONE ×2 (12:38→12:42)
[2023-02-23] MEDS: HEPARIN SODIUM 1,000 UN/ML (10ML VL) IV ONE ×4 (12:46→13:43)
--- NOTE | 2023-02-23 14:19 | P.PRCINT ---
Percutaneous Coronary Int. - Percutaneous Coronary Intervention Percutaneous Coronary Intervention: PROCEDURES PERFORMED: Left heart catheterization, bilateral coronary angiography, ultrasound guided arterial access, PCI proximal LAD with a 3.0 x 15mm Xience SHILO, post dilated with a 3.0 NC, IVUS LAD INDICATION: Abnormal stress test CONSENT:I have discussed the risks, benefits and alternative therapies for the above-mentioned procedure and for both sedation/analgesia as well as necessary blood product administration, if indicated, as they pertain to this patient. The patient has indicated understanding and acceptance of the risks and procedures discussed. PROCEDURE: After the risks, benefits and alternatives of the above mentioned procedure explained in detail with the patient, informed consent was obtained. Patient was taken to the catheterization lab and prepped and draped in usual fashion. Ultrasound guidance was used to assess for arterial access. 1% lidocaine was used to anesthetize the right radial artery. A 6-Russian sheath was placed in the right radial artery using modified Seldinger technique and ultrasound guidance. Left coronary angiography was performed with a 5-Russian JL 3.5 catheter and right coronary angiography was performed with a 5-Russian JR5 catheter in various views. A 5-Russian FR5 catheter was inserted into the left ventricle and pressure measurements were obtained. The decision was made to perform PTCA of LAD. A 6-Russian CLS 3.0 catheter was easily engage the left main. Heparin was given. A 0.014 BMW wire was advanced in the distal LAD. A second 0.014 BMW wire was advanced into the small caliber diagonal 1 branch. Next balloon angioplasty was performed with a 3.0 x 12 mm balloon and then a 3.0 x 12 mm noncompliant balloon. Intravascular ultrasound showed diffuse disease with reference vessel 3.0 mm and diffuse mid 50-60% stenosis which was felt best treated medically. A 3.0 x 15 mm Xience SHILO was placed in the proximal LAD. IVUS showed mild underexpansion and therefore post dilated with a 3.0 NC balloon. Repeat ultrasound showed excellent stent expansion with no dissection. Final angiograms were performed. Preintervention there was 90% stenosis and ARNOLD-3 flow and postintervention there was less than 10% stenosis and ARNOLD-3 flow. The right radial sheath was removed and a TR band was placed with hemostasis achieved. The patient tolerated the procedure well. Patient was transported back to the post catheterization holding area in stable condition. Conscious Sedation: Patient was monitored under the direct supervision of myself for conscious sedation using Versed and fentanyl for a total duration of 58 minutes HEMODYNAMICS: Aorta: 136/78 LV: 131/4, LVEDP 14 SELECTIVE CORONARY ARTERIOGRAPHY: LEFT MAIN: The left main is a large caliber vessel which bifurcates into the LAD and circumflex. There is no significant stenosis. LEFT ANTERIOR DESCENDING CORONARY ARTERY: LAD is a large caliber vessel which wraps around to the apex. There is an ulcerated proximal LAD 90% stenosis followed by diffuse proximal to mid LAD 50% stenosis and a mid to distal or focal 50-60% stenosis. LEFT CIRCUMFLEX CORONARY ARTERY: Left circumflex is a moderate caliber vessel with mild 20-30% stenoses. The circumflex is codominant RIGHT CORONARY ARTERY: The right coronary artery is a small to moderate caliber vessel which is a codominant vessel. There is 30% mid RCA stenosis. FINAL IMPRESSION: 1. CAD as described above including 30% RCA, 20-30% circumflex, proximal LAD 90%, mid to distal LAD 50-60% stenoses 2. S/p PCI proximal LAD with a 3.0 x 15mm Xience SHILO, post dilated with a 3.0 NC 3. Normal left sided filling pressures PLAN: 1. Aggressive risk factor modification per most recent ACC/AHA guidelines. 2. Continue dual antiplatelets with aspirin and Plavix for 6 months. 3. Mid LAD lesions appear more moderate and continue with medical therapy. If having more significant angina may consider further functional assessment.
[2023-02-23 17:13] VITALS: BP 123/75; PULSE 78
== END ==
LOC: CATHCVL 08:42
PROVIDERS: ATTEND Internal Medicine
DX: I25.10 Atherosclerotic heart disease of native coronary artery without angina pectoris (principal); I77.819 Aortic ectasia, unspecified site; I10 Essential (primary) hypertension; F41.9 Anxiety disorder, unspecified; Z79.82 Long term (current) use of aspirin; Z79.02 Long term (current) use of antithrombotics/antiplatelets; Z88.5 Allergy status to narcotic agent; Z88.6 Allergy status to analgesic agent; Z88.8 Allergy status to other drugs, medicaments and biological substances; Z79.899 Other long term (current) drug therapy
CPT/HCPCS: 92978; 93458; C9600; C1769 ×2; C1887; C1894; C1725 ×2; C1753; C1874; J2250; J2001; J3010; J1644; Q9967; J2305

== ENCOUNTER 2023-09-13 10:33 | Day surgery (SDC) | payer BC ==
--- NOTE | 2023-09-12 13:32 | HP ---
HISTORY AND PHYSICAL DATE OF SURGERY: 09/13/2023. HISTORY OF PRESENT ILLNESS: Pablo Thornton is a 62-year-old gentleman, seen with symptomatic left knee osteoarthritis. We discussed the options. He elected to proceed with left total knee arthroplasty. Consent was obtained. Cardiac clearance was provided by Dr. Jalloh. His family physician is Dr. Duong. PAST MEDICAL HISTORY: Hyperlipidemia, hypertension, and cardiovascular disease. PAST SURGICAL HISTORY: Left knee arthroscopy. DAILY MEDICATIONS: 1. Amlodipine. 2. Hydrochlorothiazide. 3. Ibuprofen. 4. Losartan. 5. Pantoprazole. ALLERGIES: Lisinopril and Vicodin. SOCIAL HISTORY: He denies tobacco use. PHYSICAL EVALUATION OF THE LEFT KNEE: He has a range of motion of 0 to 130 degrees. Mild effusion. Tenderness, medial joint line. Crepitus, medial patellofemoral compartments with range of motion. Pain with patellofemoral compression. Ligaments stable. Hip rotation without pain. Distal neurovascular exam is intact. IMAGING STUDIES: Radiographs of the left knee revealed severe osteoarthritic changes. IMPRESSION: 1. Left knee osteoarthritis. 2. Hypertension. 3. Hyperlipidemia. PLAN: Left total knee arthroplasty. MMODL / IJN: [id number] /
[~2023-09-13 10:33] MED LIST changes: -ALPRAZolam 0.25 MG TAB PO PRN; -ALPRAZolam 0.5 MG TAB PO PRN; -ASPIRIN 325 MG TAB PO STA; -ASPIRIN 81 MG PO SCH; -ATORVASTATIN 80 MG TAB PO SCH; -ATROPINE SULFATE 0.1 MG/ML 10ML SYRINGE IV PRN; -CHOLECALCIFEROL 25 MCG (1000 IU) TABLET PO SCH; -CLOPIDOGREL 75 MG TAB PO ONE; -CLOPIDOGREL 75 MG TAB PO SCH; -HEPARIN SODIUM,PORCINE (1 ML) 2,500 UNIT in SODIUM CHLORIDE 0.9% 250 ML IRRIGATION PRN; -HEPARIN SODIUM,PORCINE 10,000 UNIT in SODIUM CHLORIDE 0.9% 1,000 ML IRRIGATION PRN; +HYDROmorphone 0.5 MG/0.5 ML SYRINGE IVP PRN; -IOPAMIDOL-370 100ML BTL INJ ONE; +LIDOCAINE 1% (10MG/ML) FOR IV START INTRADERMA PRN; -LIDOCAINE 1% INJ 10MG/ML (20 ML MDV) SQ ONE; -LOSARTAN 50 MG TAB PO SCH; -MAG HYDROX/AL HYDROX/SIMETH 30 ML CUP PO PRN; -METOPROLOL SUCCINATE (ER) 25 MG TAB.ER.24H PO SCH; -NITROGLYCERIN 1000MCG/10ML SYRINGE INTRACORON ONE; -NITROGLYCERIN SL TABS 0.4 MG TAB SUBLINGUAL PRN; -NON FORMULARY DRUG (Mv-Min/Folic/K1/Lycopen/Lutein [Centrum Silver Men Tablet] 1 EACH Tabl PO SCH; -PANTOPRAZOLE 40 MG TABLET PO SCH; -RX INFO: IV CONTRAST WAS GIVEN 1 EACH MISC MISCELLANE PRN; -SODIUM CHLORIDE 0.9% 1,000 ML IV ONE; -SODIUM CHLORIDE 0.9% 1,000 ML in EMPTY BAG 1 BAG IV SCH; +TRANEXAMIC 1,000 MG/100ML-NACL 1,000 MG in SALINE 1 100ML.BAG IVPB PRN; -VERAPAMIL SYRINGE (5 MG/10 ML) INTRAARTER ONE; -ZOLPIDEM 5 MG TAB PO PRN; -amLODIPine 2.5 MG TAB PO SCH; -hydroCHLOROthiazide 12.5 MG CAP PO SCH
[2023-09-13] MEDS: LACTATED RINGERS 1,000 ML IV SCH ×2 (10:43→17:59)
[2023-09-13] MEDS: ACETAMINOPHEN TAB 500 MG TAB PO PRN (11:15)
[2023-09-13] MEDS: MELOXICAM 7.5 MG TAB PO PRN (11:15)
[2023-09-13] MEDS: ONDANSETRON 4 MG/2 ML VIAL IVP PRN (11:15)
[2023-09-13] MEDS: DEXAMETHASONE SOD PHOSPHATE 4 MG/ML 1 ML VIAL IV ONE (11:15)
[2023-09-13] MEDS: fentaNYL (PF) 50 MCG/ML 2 ML AMP IVP ONE (11:38)
[2023-09-13] MEDS: MIDAZOLAM 2 MG/2 ML VIAL IVP ONE (11:38)
[2023-09-13] MEDS ORDERED: MIDAZOLAM 2 MG/2 ML VIAL ONE (13:02)
[2023-09-13] MEDS ORDERED: TRANEXAMIC 1,000 MG/100ML-NACL PREMIX BAG ONE (13:02)
[2023-09-13] MEDS ORDERED: diphenhydrAMINE 50 MG/ML 1 ML VIAL ONE (13:02)
[2023-09-13] MEDS ORDERED: ROPIVACAINE 5 MG/ML 30 ML VIAL ONE (13:02)
[2023-09-13] MEDS ORDERED: fentaNYL (PF) 50 MCG/ML 2 ML AMP ONE (13:02)
[2023-09-13] MEDS ORDERED: PROPOFOL 10 MG/ML 20 ML VIAL IV ONE (13:02)
[2023-09-13] MEDS: LACTATED RINGERS 1,000 ML IV ONE (13:56)
[2023-09-13] MEDS: ceFAZolin 1,000 MG in SODIUM CHLORIDE 0.9% 1,000 ML IRRIGATION ONE (14:13)
--- NOTE | 2023-09-13 14:52 | P.ANPRN ---
Procedure Note - Anesthesia - Nerve Block Performed Left Adductor Canal Infusion Time Out Performed: Yes (1138) Date of Procedure: 09/13/23 Procedure Start Time: 11:39 Procedure Stop Time: 11:44 Location of Patient: PreOp Indication: Acute Post-Operative Pain, Requested by Surgeon Specifically requested for management of pain by DrTyesha: Jt Marino Sedation Type: Sedate with meaningful contact maintained Preparation: Sterile Prep, Sterile Dressing Position: Supine Catheter Depth at Skin (cm): 8 Catheter: Indwelling Needle Types: Pajunk Needle Gauge: 18 Ultrasound used to visualize needle placement: Yes Ultrasound used to observe medication spread: Yes Injectate: 0.5% Ropivacaine (see comment for volume) (20cc) Blood Aspirated: No Pain Paresthesia on Injection Noted: No Resistance on Injection: Normal Image Stored and Saved: Yes Events: Uneventful and Well Tolerated
--- NOTE | 2023-09-13 14:53 | P.ANPRN ---
Procedure Note - Anesthesia - Nerve Block Performed Left iPack Single Time Out Performed: Yes (1138T) Date of Procedure: 09/13/23 Procedure Start Time: 11:45 Procedure Stop Time: 11:47 Location of Patient: PreOp Indication: Acute Post-Operative Pain, Requested by Surgeon Specifically requested for management of pain by DrTyesha: Jt Marino Sedation Type: Sedate with meaningful contact maintained Preparation: Sterile Prep Position: Supine Catheter: None Needle Types: Pajunk Needle Gauge: 21 Ultrasound used to visualize needle placement: Yes Ultrasound used to observe medication spread: Yes Injectate: 0.5% Ropivacaine (see comment for volume) (20CC) Blood Aspirated: No Pain Paresthesia on Injection Noted: No Resistance on Injection: Normal Image Stored and Saved: Yes Events: Uneventful and Well Tolerated
[2023-09-13] MEDS ORDERED: ONDANSETRON 4 MG/2 ML VIAL IVP PRN (15:25)
[2023-09-13] MEDS ORDERED: NALOXONE 0.4 MG/ML 1 ML VIAL IV PRN (15:25)
[2023-09-13] MEDS ORDERED: HYDROmorphone 1 MG/ML 1 ML SYRINGE IVP PRN (15:25)
[2023-09-13] MEDS ORDERED: HYDROcodone/APAP 5-325MG 1 EACH TAB PO PRN (15:25)
[2023-09-13] MEDS ORDERED: HYDROmorphone 0.5 MG/0.5 ML SYRINGE IVP PRN (15:25)
--- NOTE | 2023-09-13 15:25 | P.OP ---
Date of Procedure: 09/13/23 Preoperative Diagnosis: Left knee osteoarthritis Postoperative Diagnosis: Left knee osteoarthritis Procedure(s) Performed: Left total knee arthroplasty Implants: 1. DePuy attune size 7 left cruciate retaining cemented femur 2. DePuy attune size 7 fixed-bearing cruciate retaining cemented tibial baseplate 3. DePuy attune size 7 fixed-bearing cruciate retaining 10 mm polyethylene tibial insert 4. DePuy attune 38 mm all polyethylene cemented patella Anesthesia: regional (Adductor canal catheter, iPAQ block), spinal Surgeon: Jt Marino Estimated Blood Loss (ml): 60 Pathology: none sent Condition: stable Disposition: PACU Indications for Procedure: 62-year-old patient seen with symptomatic left knee osteoarthritis. After having treatment options discussed, he elected to proceed with total knee arthroplasty. Operative Findings: See description of procedure Description of Procedure: Patient was taken to the operative suite after having an adductor canal catheter placed by the department of anesthesia. Patient underwent a spinal anesthetic by the department of anesthesia. Patient was given preoperative IV intake antibiotics and TXA. A well-padded tourniquet was placed about the [] lower extremity. The lower extremity was then prepped and draped in the normal sterile orthopedic fashion. The extremity was elevated, a tourniquet was insufflated to 300. A standard anterior incision was made sharply through skin. Dissection was taken down through the subcutaneous soft tissues down to the extensor mechanism. A medial arthrotomy was performed, patella was everted and knee was flexed. There was advanced osteoarthritis noted. I introduced my distal intramedullary femoral drill. I then introduced the distal femoral cutting jig. I secured the cutting jig with 2 pins. I performed the distal femoral resection through the guide area we now removed her distal femoral cutting guide. We now placed our 4-in-1 femoral cutting block and positioned and it was secured with 2 pins by an pharmacy affairs assistant while I held the block in position. The distal femoral finishing was now completed. A proximal tibial cutting guide was positioned. I held the guide in the appropriate position while a pharmacy affairs assistant inserted stabilizing pins into the guide. Proximal tibial cut was made. We now placed a trial femoral component into position, along with an appropriate size tibial tray and insert. We now took the knee through range of motion and had full extension good flexion and good overall soft tissue balance noted. The patella was everted and stabilized with 2 towel clips held by an pharmacy affairs assistant while I performed a flush with patellar quad tendon utilizing a fresh sawblade. We templated the patella, appropriate drill holes were made. An appropriate trial patella was positioned, knee was taken through full range of motion with the patella tracking very nicely. The trial patella was removed. Drill holes were made through the femoral component. All trial components were removed after marking off the appropriate rotation of the tibia. Retractors were now positioned along the proximal tibia. An appropriate keel punch was made with the appropriate size tibial guide by myself. At this point appropriate size implants were chosen and opened. The joint was irrigated copiously with pulse lavage mechanical irrigation. The wound was irrigated with pulse lavage mechanical irrigation. We mixed antibiotic methylmethacrylate. We placed the knee into flexion. We placed multiple retractors assisted by an pharmacy affairs assistant to expose the proximal tibia. Once the methyl methacrylate was ready, the tibial component was cemented into place removing any excess methylmethacrylate. The femoral component was cemented into place removing the removing any excess methylmethacrylate. We then inserted the appropriate size polyethylene tibial insert. We made sure that it was locked into position. We took the knee into full extension, and then back in a flexion making sure we had removed any excess methylmethacrylate. The patellar component was then cemented down and secured with clamp. Excess methylmethacrylate removed. We kept the knee in full extension, patellar clamp in position until methylmethacrylate had hardened. Once it had hardened the patellar clamp was removed. The knee was taken through full range of motion. The patella tracked nicely. There was good soft tissue balancing. The tourniquet was now released. Additional hemostasis was achieved via electrocautery. A second gram of TXA was given. The wound again was irrigated with pulse lavage mechanical irrigation. The extensor mechanism was repaired with Ethibond suture. We checked the repair with range of motion and it was stable. The subcutaneous soft tissues were repaired with Vicryl in layers. The skin was approximated with pernio/Dermabond. Sterile dressings were applied followed by loose web roll and Felipe bandage. The patient was transferred to a bed, and taken to recovery in stable and satisfactory condition.
[2023-09-13 15:49] VITALS: RESP 16
--- NOTE | 2023-09-13 16:21 | XR ---
EXAMINATION TYPE: XR knee limited LT DATE OF EXAM: 09/13/2023 CLINICAL HISTORY: Postoperative evaluation Two views of the left knee are submitted. Identified are changes of total knee arthroplasty with fem oral and tibial components appearing well seated. Postsurgical soft tissue changes are noted. Align ment is anatomic.
[2023-09-13] MEDS: traMADol 50 MG TAB PO PRN (18:53)
[2023-09-13] MEDS: SENNOSIDES-DOCUSATE SODIUM 1 EACH TAB PO SCH (20:05)
[2023-09-13] MEDS: HYDROmorphone 0.5 MG/0.5 ML SYRINGE IVP PRN (20:06)
[2023-09-13] MEDS: ROPIVACAINE 1,100 MG, SODIUM CHLORIDE 0.9% 500 ML 330 ML, EMPTY PAIN BALL 1 EACH MISCELLANE PRN (21:00)
[2023-09-13] MEDS ORDERED: ALPRAZolam 0.25 MG TAB PO PRN (21:07)
--- NOTE | 2023-09-13 22:11 | P.CONS ---
History of Present Illness - Reason for Consult Consult date: 09/13/23 Medical management Requesting physician: Jt Marino - Chief Complaint Knee surgery - History of Present Illness This is a very pleasant 62-year-old patient who follows with Dr. Duong. Chronic stable medical conditions include GERD, hypertension, lower back pain from herniated disc. He with stent placed from Dr. Jalloh in January. Patient is: Left total knee arthroplasty. Postprocedure some pain is present. No nausea vomiting. Did tolerate light diet. Patient recently got a clearance from Dr. Jalloh for surgery. Review of systems: GEN.: None EYES: None HEENT: None NECK: None RESPIRATORY: [As above CARDIOVASCULAR: None GASTROINTESTINAL: Reflux GENITOURINARY: None MUSCULOSKELETAL: Pains LYMPHATICS: None HEMATOLOGICAL: None PSYCHIATRY: None NEUROLOGICAL: None Past medical history to include: GERD, hypertension, lower back herniated disc, chronic knee pain, CAD with stent January 2023 Social history: , does not smoke cigars. chewed tobacco since 97 for age of 14 stopped year and a half ago. Now does vaping.. Takes about 15 beers a week. Works at [employer] Physical examination: VITAL SIGNS: 2, 16, 126 x 76, 94% room air GENERAL: AMI 32.7, sitting at the edge of the bed EYES: Pupils equal. Conjunctiva normal. HEENT: External appearance of nose and ears normal, oral cavity grossly normal. NECK: JVD not raised; masses not palpable. HEART: First and second heart sounds are normal; no edema. LUNGS: Respiratory rate normal; clear to auscultation. ABDOMEN: Soft, nontender, liver spleen not palpable, no masses palpable. PSYCH: Alert and oriented x3; mood and affect normal. NEUROLOGICAL: Cranial nerves grossly intact; no facial asymmetry, power and sensation grossly intact. MUSCULOSKELETAL: Dressing over the left knee. LYMPHATICS: No lymph nodes palpable in the axilla and neck, Investigations: Abs Assessment and plan: -Left total knee arthroplasty Lovenox for DVT prophylaxis. IV cefazolin for infection prophylaxis -CAD with stent in January [address] Jalloh [employer]. Aspirin. Toprol-XL 12.5 mg a day. Lipitor 80 mg nightly -GERD Protonix -Essential hypertension Toprol-XL 12.5 mg a day. Losartan 50 mg a day. Cut back dose of amlodipine for tonight -Hyperlipidemia Lipitor 80 mg nightly -Chronic herniated lumbar disc Pain medications as needed -Does vaping for recreational purposes -Obesity BMI 32.7 Weight loss measures Care was discussed with the patient. Questions answered. Thank you Dr. Marino Past Medical History Past Medical History: GERD/Reflux, Hyperlipidemia, Hypertension, Osteoarthritis (OA) Additional Past Medical History / Comment(s): hx difficulty swallowing- resolved, sternal pain -gerd, Chronic back pain/bulging discs, chronic bilateral knee pain, arthritis in back and bilateral knees. failed pre op stress test. chest pain History of Any Multi-Drug Resistant Organisms: None Reported Past Surgical History: Heart Catheterization With Stent, Orthopedic Surgery, Tonsillectomy Additional Past Surgical History / Comment(s): LEFT HAND SURG ( A CHILD), COLONOSCOPY, PAIN CLINIC PROCEDURES, L KNEE ARTHROSCOPY Past Anesthesia/Blood Transfusion Reactions: No Reported Reaction, Motion Sickness Additional Past Anesthesia/Blood Transfusion Reaction / Comm: occ motion sickness Date of Last Stent Placement:: 2022 Past Psychological History: Anxiety Additional Psychological History / Comment(s): . Smoking Status: Vaper Past Alcohol Use History: Heavy Additional Past Alcohol Use History / Comment(s): Pt started using dip in 1974- quit. vapes daily , cartridge every 2 weeks . beer daily > 14 weeks. Past Drug Use History: None Reported - Past Family History Father History Unknown: Yes Additional Family Medical History / Comment(s): Pt never met his father. Mother Family Medical History: No Reported History Additional Family Medical History / Comment(s): Mother is healthy. Medications and Allergies Home Medications Medication Instructions Recorded Confirmed Type ALPRAZolam [Xanax] 0.25 mg PO BID PRN 01/12/19 09/13/23 History Losartan Potassium 50 mg PO QAM 01/11/20 09/13/23 History hydroCHLOROthiazide 12.5 mg PO DAILY 01/11/20 09/13/23 History Aspirin 81 mg PO DAILY 02/18/23 09/13/23 History Metoprolol Succinate (ER) [Toprol 12.5 mg PO DAILY 02/18/23 09/13/23 History Xl] Pantoprazole [Protonix] 40 mg PO BID 02/18/23 09/13/23 History amLODIPine BESYLATE 10 mg PO HS 02/18/23 09/13/23 History Atorvastatin [Lipitor] 80 mg PO HS #90 tab 02/23/23 09/13/23 Rx Allergies Allergy/AdvReac Type Severity Reaction Status Date / Time hydrocodone [From Vicodin] Allergy Nausea & Verified 09/13/23 10:44 Vomiting lisinopril Allergy edema Verified 09/13/23 10:44 Physical Exam Vitals: Vital Signs Temp Pulse Pulse Resp BP Pulse Ox 09/13/23 17:15 82 16 126/76 94 L 09/13/23 16:50 80 16 130/78 94 L 09/13/23 16:35 82 16 141/88 93 L 09/13/23 16:20 75 16 117/81 92 L 09/13/23 16:05 73 16 115/73 09/13/23 15:50 71 16 132/85 93 L 09/13/23 15:34 72 16 114/73 92 L 09/13/23 15:19 97.2 F L 87 16 113/70 92 L 09/13/23 11:54 78 18 134/72 94 L 09/13/23 10:42 97.0 F L 83 18 138/87 94 L Intake and Output 09/13/23 09/13/23 09/13/23 06:59 14:59 22:59 Intake Total 1251 500 Output Total 60 Balance 1251 440 Intake: IV 1251 400 Intake, IV Titration 100 Amount Lactated Ringers 1,000 ml 100 @ 100 mls/hr IV .Q10H [facility] Rx#:[id number] Output: Estimated Blood Loss 60 Other: Weight 109.4 kg 109.4 kg
[2023-09-13] MEDS: PANTOPRAZOLE 40 MG TABLET PO SCH (23:37)
[2023-09-14 04:38] VITALS: PULSE 98
[2023-09-14 08:24] VITALS: BP 130/67; TEMP 98.4
--- NOTE | 2023-09-14 09:19 | P.PN ---
Progress Note - Text 09/14/23 618am 62-year-old male status post total knee replacement. Patient seen and evaluated for postop pain control, patient has an On-Q pump with a solution running at 8 cc an hour with a VAS of 7. Pain is predominant located posteriorly as the iPAQ block,has worn off. Plan to continue On-Q pump infusion
[2023-09-14 09:31] LABS: Basophils # (A) 0.03 X 10*3/uL (0.00-0.10); Basophils % (A) 0.2 %; Eosinophils # (A) 0.01 X 10*3/uL (0.04-0.35); Eosinophils % (A) 0.1 %; HCT 38.3 % (39.6-50.0); HGB 12.8 g/dL (13.0-17.0); Lymphocytes % (A) 10.1 %; MCH 31.8 pg (27.0-32.0); MCHC 33.4 g/dL (32.0-37.0); Mean Platelet Volume 11.9 FL (9.5-12.2); Monocytes # (A) 1.49 X 10*3/uL (0.20-1.00); Monocytes % (A) 11.6 %; NRBC Per 100 WBC 0 X 10*3/uL (0.00-0.01); Neutrophils % (A) 77.5 %; Platelet Count 193 X 10*3/uL (140-440); RBC 4.03 X 10*6/uL (4.40-5.60); RDW 13.1 % (11.5-14.5); WBC 12.89 X 10*3/uL (4.50-10.00)
[2023-09-14] MEDS: ASPIRIN 81 MG PO SCH (09:36)
[2023-09-14] MEDS: METOPROLOL SUCCINATE (ER) 25 MG TAB.ER.24H PO SCH (09:36)
[2023-09-14] MEDS: ENOXAPARIN 30 MG/0.3 ML SYRINGE SQ SCH (09:36)
[2023-09-14] MEDS: HYDROcodone/APAP 7.5-325MG 1 EACH TAB PO PRN (09:36)
[2023-09-14] MEDS: LOSARTAN 50 MG TAB PO SCH (09:37)
--- NOTE | 2023-09-14 10:21 | P.PN ---
Subjective Progress Note Date: 09/14/23 Principal diagnosis: Status post left total knee arthroplasty Patient is evaluated today at bedside, he is resting with the leg elevated and utilizing ice. Patient states that they did utilize [place] yesterday due to a previous allergy, he has taken 1 earlier today and having no adverse effects. He also requested tramadol to be taken in between. He did do well with physical therapy. He has been urinating with no issues. Denies headaches, lightheadedness, chest pain or shortness of breath Objective - Vital Signs Vital signs: Vital Signs Temp 98.4 F 09/14/23 07:21 Pulse 98 09/14/23 07:21 Resp 16 09/14/23 07:21 BP 130/67 09/14/23 07:21 Pulse Ox 91 L 09/14/23 07:21 FiO2 Intake & Output 09/13/23 09/14/23 09/14/23 18:59 06:59 18:59 Intake Total 1651 100 Output Total 60 700 Balance 1591 -600 Weight 109.4 kg Intake: IV 1651 Intake, IV Titration 100 Amount Lactated Ringers 1,000 ml 100 @ 100 mls/hr IV .Q10H [facility] Rx#:[id number] Output: Urine 700 Estimated Blood Loss 60 - Exam Left lower extremity: Incision is clean, dry, and intact. The foam dressing is in good condition. There is minimal soft tissue swelling and ecchymosis surrounding the medial and lateral aspects of the incision. Calf is soft, no tenderness with palpation. Plantar flexion, dorsiflexion, EHL, FHL are intact. Sensory exam to light touch throughout the extremity is intact, dorsal pedis pulses 2+. - Labs CBC & Chem 7: 09/14/23 04:21 Labs: Abnormal Lab Results - Last 24 Hours (Table) 09/14/23 Range/Units 04:21 WBC 12.89 H (4.50-10.00) X 10*3/uL RBC 4.03 L (4.40-5.60) X 10*6/uL Hgb 12.8 L (13.0-17.0) g/dL Hct 38.3 L (39.6-50.0) % Immature Gran # 0.06 H (0.00-0.04) X 10*3/uL Neutrophils # 10.00 H (1.80-7.70) X 10*3/uL Monocytes # 1.49 H (0.20-1.00) X 10*3/uL Eosinophils # 0.01 L (0.04-0.35) X 10*3/uL Assessment and Plan Assessment: Postoperative day #1 status post left total knee arthroplasty Plan: Pain control, plan for discharge home on both [place] and tramadol. Will also uti lize stool softeners DVT prophylaxis, he will resume his Plavix and aspirin at discharge Home health care, this to include nursing and physical therapy after discharge Icing and elevating techniques discussed Wound care instructions discussed, this to include showering and when to remove On-Q pain catheter Medical recommendations appreciated Planning: Patient stable for discharge home today Time with Patient: Less than 30
--- NOTE | 2023-09-14 10:26 | P.DS ---
Providers Date of admission: 09/13/2023 Expected date of discharge: 09/14/23 Attending physician: Jt Marino Consults: 09/13/23 17:29 Consult Physician Routine Consulting Provider: Efren Mondragon Consult Reason/Comments: medical managment Do you want consulting provider notified?: Yes Primary care physician: [facility] Hospital Course: Date of admission: 09/13/2023 Date of discharge: 09/14/2023 Admission diagnosis: Status post left total knee arthroplasty Discharge diagnosis: Same Attending physician: Dr. Marino Surgical procedures: Left total knee arthroplasty Brief history: Patient is a 62-year-old male with a history of progressive left knee osteoarthritis. At this point patient has failed conservative treatment measures and has opted to proceed with a elective left total knee arthroplasty. Hospital course: Details of patient's surgery can be found in operative report. Patient tolerated the procedure well and [facility] Patient's orthopeidc and medical care was provided daily. Patient had daily laboratory tests performed for evaluation of overall blood counts. Patient had daily physical therapy to include strengthening range of motion as well as education with walker ambulation. Patient was treated with Lovenox for their postoperative DVT prophylaxis during their inpatient stay. Patient was noted to have a relatively uneventful postoperative course. Patient reported satisfactory pain control with oral pain medications by postoperative day 0. Patient showed satisfactory progress with physical therapy. Patient moved steadily through the program and had no difficulty meeting the goals by postoperative day 1. Given patient's otherwise satisfactory course and having met physical therapy goals, plan is to discharge patient home on postoperative day 1. Discharge condition/disposition: Patient will be discharged home in stable condition. Discharge medications: Instructions are given on resumption of patient's normal daily medications per primary care recommendation, in addition patient will be prescribed [place] 7.5 mg / 325 mg, tramadol 50 mg, senna S. Discharge instructions: 1. Wound care and infection precautions, keep incision dry and covered while showering, no lotions, creams, moisturizers. No soaking, tubs, pools, hottubs. Do not scrub over the incision. 2. Weight-bear as tolerated with walker / cane until follow-up. 3. Ice and elevate when necessary. Do not exceed 20 minutes per hour with ice pack. 4. Utilize compression sleeve until seen at first follow up appointment. 5. Visiting nursing care. 6. Home physical therapy including home CPM. 7. Pain meds and anticoagulants per prescription. 8. Pain medication has potential to cause constipation. Increase oral fluid and fiber intake. Contact primary care provider if you have not had a bowel movement within 48 hours after discharge 9. No anti-inflammatory medication until discussed at first post operative visit, this including Motrin, Aleve, Mobic, Diclofenac. 10. Follow up in office at 2 weeks postop with Seferino Mcknight PA-C/Adam Saul 11. Follow up with your primary care doctor 7-10 days after discharge. 12. Contact [facility] with any questions, . Procedures: Left total knee arthroplasty Patient Condition at Discharge: Good Plan - Discharge Summary Discharge Rx Participant: Yes New Discharge Prescriptions: New polyethylene glycoL 3350 [Miralax] 17 gm PO DAILY PRN #21 packet PRN Reason: Constipation HYDROcodone/APAP 7.5-325MG [[place] 7.5] 1 each PO Q4HR PRN #42 tab PRN Reason: Pain Sennosides/Docusate Sodium [Senna-S 8.6-50 mg Tablet] 2 each PO DAILY PRN #30 tablet PRN Reason: Constipation traMADol HCl [Ultram] 50 mg PO Q6H PRN #28 tab PRN Reason: Pain No Action ALPRAZolam [Xanax] 0.25 mg PO BID PRN PRN Reason: Anxiety Losartan Potassium 50 mg PO QAM hydroCHLOROthiazide 12.5 mg PO DAILY Pantoprazole [Protonix] 40 mg PO BID Metoprolol Succinate (ER) [Toprol Xl] 12.5 mg PO DAILY Atorvastatin [Lipitor] 80 mg PO HS #90 tab Aspirin 81 mg PO DAILY amLODIPine BESYLATE 10 mg PO HS Discharge Medication List ALPRAZolam [Xanax] 0.25 mg PO BID PRN 01/12/19 [History] Losartan Potassium 50 mg PO QAM 01/11/20 [History] hydroCHLOROthiazide 12.5 mg PO DAILY 01/11/20 [History] Aspirin 81 mg PO DAILY 02/18/23 [History] Metoprolol Succinate (ER) [Toprol Xl] 12.5 mg PO DAILY 02/18/23 [History] Pantoprazole [Protonix] 40 mg PO BID 02/18/23 [History] amLODIPine BESYLATE 10 mg PO HS 02/18/23 [History] Atorvastatin [Lipitor] 80 mg PO HS #90 tab 02/23/23 [Rx] HYDROcodone/APAP 7.5-325MG [[place] 7.5] 1 each PO Q4HR PRN #42 tab 09/14/23 [Rx] Sennosides/Docusate Sodium [Senna-S 8.6-50 mg Tablet] 2 each PO DAILY PRN #30 tablet 09/14/23 [Rx] polyethylene glycoL 3350 [Miralax] 17 gm PO DAILY PRN #21 packet 09/14/23 [Rx] traMADol HCl [Ultram] 50 mg PO Q6H PRN #28 tab 09/14/23 [Rx] Follow up Appointment(s)/Referral(s): Amor Mcknight PAC [PHYSICIAN ELECTRIC SERVICEMAN] - 2 Weeks Activity/Diet/Wound Care/Special Instructions: Orthopedic Discharge Instructions: 1. Wound care and infection precautions, keep incision dry and covered while showering, no lotions, creams, moisturizers. No soaking, pools, hot tubs. Do not scrub over incision. 2. Weight-bear as tolerated with walker / cane until follow-up. 3. Ice and elevate when necessary. Do not exceed 20 minutes per hour with ice pack. 4. Utilize compression sleeve until seen at first follow up appointment. 5. Pain meds and anticoagulants per prescription. 6. Pain medication has potential to cause constipation. Increase oral fluid and fiber intake. Contact primary care provider if you have not had a bowel movement within 48 hours after discharge. 7. No anti-inflammatory medication until discussed at first post operative visit, this including Motrin, Aleve, Mobic, Diclofenac. 8. Follow up in office at 2 weeks postop with Seferino Mcknight PA-C/Adam Cee PA-C 9. Follow up with your primary care doctor 7-10 days after discharge. 10. Contact [facility] with any questions, . Wound care instructions: 1. Okay to remove surgical dressing as of 09/20/2023 2. Okay to shower directly over surgical incision after removal of dressing Discharge Disposition: HOME WITH HOME HEALTH SERVICES
[2023-09-14] MEDS ORDERED: MULTIVITAMINS, THERA 1 EACH TAB PO SCH (12:00)
--- NOTE | 2023-09-14 15:10 | P.PN ---
Progress Note - Text Progress Note Date: 09/14/23 - Chief Complaint Knee surgery - History of Present Illness This is a very pleasant 62-year-old patient who follows with Dr. Duong. Chronic stable medical conditions include GERD, hypertension, lower back pain from herniated disc. He with stent placed from Dr. Jalloh in January. Patient is: Left total knee arthroplasty. Postprocedure some pain is present. No nausea vomiting. Did tolerate light diet. Patient recently got a clearance from Dr. Jalloh for surgery. September 14, 2023: Doing well. Did ambulate. Pain controlled. No nausea vomiting. Did tolerate his diet. Blood pressure medications check of daily blood pressure discussed with the patient. Past medical history to include: GERD, hypertension, lower back herniated disc, chronic knee pain, CAD with stent January 2023 Social history: , does not smoke cigars. chewed tobacco since 97 for age of 14 stopped year and a half ago. Now does vaping.. Takes about 15 beers a week. Works at [employer] Physical examination: VITAL SIGNS: 98.4, 98, 16, 130/67, 91% room air GENERAL: 98.4, 98, 16, 130/67, 91% room air EYES: Pupils equal. Conjunctiva normal. HEENT: External appearance of nose and ears normal, oral cavity grossly normal. NECK: JVD not raised; masses not palpable. HEART: First and second heart sounds are normal; no edema. LUNGS: Respiratory rate normal; clear to auscultation. ABDOMEN: Soft, nontender, liver spleen not palpable, no masses palpable. PSYCH: Alert and oriented x3; mood and affect normal. NEUROLOGICAL: Cranial nerves grossly intact; no facial asymmetry, power and sensation grossly intact. MUSCULOSKELETAL: Dressing over the left knee. Investigations: White count 12.8 hemoglobin 12.8 platelets 193 Assessment and plan: -Left total knee arthroplasty Lovenox for DVT prophylaxis. IV cefazolin for infection prophylaxis -CAD with stent in January [address] Jalloh electrical calibrator. Aspirin. Toprol-XL 12.5 mg a day. Lipitor 80 mg nightly -GERD Protonix -Essential hypertension Toprol-XL 12.5 mg a day. Losartan 50 mg a day. Amlodipine dose discussed with the patient and . Daily blood pressure check -Leukocytosis, reactive from surgery. No clinical evidence of infection -Hyperlipidemia Lipitor 80 mg nightly -Chronic herniated lumbar disc Pain medications as needed -Does vaping for recreational purposes -Obesity BMI 32.7 Weight loss measures Discussed. Follow-up with PCP upon discharge. Patient also to resume his home dose of Plavix that was discontinued prior to surgery Thank you Dr. Marino Past Medical History Past Medical History: GERD/Reflux, Hyperlipidemia, Hypertension, Osteoarthritis (OA) Additional Past Medical History / Comment(s): hx difficulty swallowing- resolved, sternal pain -gerd, Chronic back pain/bulging discs, chronic bilateral knee pain, arthritis in back and bilateral knees. failed pre op stress test. chest pain History of Any Multi-Drug Resistant Organisms: None Reported Past Surgical History: Heart Catheterization With Stent, Orthopedic Surgery, Tonsillectomy Additional Past Surgical History / Comment(s): LEFT HAND SURG ( A CHILD), COLONOSCOPY, PAIN CLINIC PROCEDURES, L KNEE ARTHROSCOPY Past Anesthesia/Blood Transfusion Reactions: No Reported Reaction, Motion Sickness Additional Past Anesthesia/Blood Transfusion Reaction / Comm: occ motion sickness Date of Last Stent Placement:: 2022 Past Psychological History: Anxiety Additional Psychological History / Comment(s): . Smoking Status: Vaper Past Alcohol Use History: Heavy Additional Past Alcohol Use History / Comment(s): Pt started using dip in 1974- quit. vapes daily , cartridge every 2 weeks . beer daily > 14 weeks. Past Drug Use History: None Reported
[2023-09-14] MEDS ORDERED: amLODIPine 5 MG TAB PO SCH (21:00)
[2023-09-14] MEDS ORDERED: ATORVASTATIN 80 MG TAB PO SCH (21:00)
== END 2023-09-14 12:50 | disposition home health service (06) ==
LOC: OR 10:33 → 4SSUR 17:16 → OR 09-14 12:50
PROVIDERS: ATTEND Orthopaedic Surgery
DX: M17.12 Unilateral primary osteoarthritis, left knee (principal); G89.18 Other acute postprocedural pain; I10 Essential (primary) hypertension; E78.5 Hyperlipidemia, unspecified; Z90.89 Acquired absence of other organs; Z79.899 Other long term (current) drug therapy; Z88.5 Allergy status to narcotic agent; Z88.8 Allergy status to other drugs, medicaments and biological substances
CPT/HCPCS: 97161; 85025; 73560; 27447; 64448; J2250; J1100; J0690 ×3; J2405; J3010; J1650; J2795; J1170; 64999

== ENCOUNTER 2023-10-18 11:35 | Emergency (ER) | payer BC ==
[2023-10-18 11:49] VITALS: TEMP 98.2
[2023-10-18 12:45] LABS: Basophils % (A) 1 %; Eosinophils # (A) 0.3 k/uL (0-0.7); Eosinophils % (A) 4 %; HCT 46.2 % (39.0-53.0); HGB 15.2 gm/dL (13.0-17.5); Lymphocytes # (A) 1.5 k/uL (1.0-4.8); Lymphocytes % (A) 22 %; MCH 31.9 pg (25.0-35.0); MCV 96.6 fL (80.0-100.0); Mean Platelet Volume 9.5; Monocytes # (A) 0.7 k/uL (0-1.0); Monocytes % (A) 10 %; Neutrophils # (A) 4.3 k/uL (1.3-7.7); Neutrophils % (A) 63 %; Platelet Count 163 k/uL (150-450); RBC 4.78 m/uL (4.30-5.90); RDW 13.7 % (11.5-15.5); WBC 6.9 k/uL (3.8-10.6)
[2023-10-18 12:54] LABS: ALT 22 U/L (4-49); AST 25 U/L (17-59); African American GFR (CKD) >90 (>60 ml/min/1.73 sqM); Albumin 4.9 g/dL (3.5-5.0); Alkaline Phosphatase 124 U/L (38-126); Anion Gap 11 mmol/L; Blood Urea Nitrogen 9 mg/dL (9-20); Calcium 10.2 mg/dL (8.4-10.2); Carbon Dioxide 23 mmol/L (22-30); Chloride 107 mmol/L (98-107); Glucose 111 mg/dL (74-99); Lipase 54 U/L (23-300); Magnesium 2.1 mg/dL (1.6-2.3); Non-African American GFR(CKD) >90 (>60 ml/min/1.73 sqM); Potassium 3.7 mmol/L (3.5-5.1); Sodium 141 mmol/L (137-145); Total Bilirubin 0.8 mg/dL (0.2-1.3); Total Protein 7.6 g/dL (6.3-8.2)
[2023-10-18 13:03] LABS: NT-Pro-B-Type Natriuretic Pept 359 pg/mL
[2023-10-18 13:04] LABS: Partial Thromboplastin Time 24.3 sec (22.0-30.0); Prothrombin Time 11.2 sec (10.0-12.5)
--- NOTE | 2023-10-18 13:09 | XR ---
EXAMINATION TYPE: XR chest 2V DATE OF EXAM: 10/18/2023 1:02 PM CLINICAL INDICATION:Male, 63 years old with history of Chest Pain; COMPARISON: Chest radiographs from 10/18/2023. TECHNIQUE: XR chest 2V Frontal and lateral views of the chest. FINDINGS: Lungs/Pleura: There is no evidence of pleural effusion, focal consolidation, or pneumothorax. Pulmonary vascularity: Unremarkable. Heart/mediastinum: Cardiomediastinal silhouette is unremarkable. Musculoskeletal: No acute osseous pathology. IMPRESSION: No acute cardiopulmonary disease/process.
--- NOTE | 2023-10-18 13:58 | CT ---
EXAMINATION TYPE: CT chest angio for PE DATE OF EXAM: 10/18/2023 COMPARISON: 01/12/2019 HISTORY: SOB CT DLP: 532.8 mGycm CONTRAST: CT chest with contrast and 3D reconstruction with MIP imaging is performed without and with IV Contra st, patient injected with 100 ml mL of Isovue 370. Contrast-enhanced CT of the chest was performed through the course of the pulmonary arteries with tutu g and mediastinal window settings submitted. 3D reconstruction with MIP imaging was also performed. PULMONARY ARTERIES: The pulmonary arteries and their major tributaries are patent. I do not see stone dence for sizable filling defect to suggest pulmonary embolic process. LUNGS: The lungs are clear and free of infiltrate. No evidence for atelectasis. No pulmonary nodule or mass is detected. No pleural effusion. MEDIASTINUM: Thoracic aorta is of normal caliber,however, evaluation is limited given timing of the contrast bolus. If there is concern for thoracic aortic pathology consider ALDAIR. Correlate clinicall y . The heart is not enlarged. No evidence for mediastinal mass. No mediastinal lymph nodes greater than 1cm. HILAR STRUCTURES: No evidence for mass. No hilar lymph nodes greater than 1 cm. UPPER ABDOMEN: No significant abnormality is seen. IMPRESSION: 1. No evidence for Pulmonary embolism at this time.
--- NOTE | 2023-10-18 14:13 | ED ---
General Adult HPI - General Chief complaint: Recheck/Abnormal Lab/Rx Stated complaint: Hypertension Time Seen by Provider: 10/18/23 11:43 Source: patient, RN notes reviewed Mode of arrival: ambulatory Limitations: no limitations - History of Present Illness Initial comments: 63-year-old male presents emergency department chief complaint of hypertension. Patient states that his blood pressure was up on his PCP visit on though he recently stopped his amlodipine as directed when he was admitted for his knee surgery. Patient states that his blood pressure ended up coming down in the go home but he was having discomfort in his knee and trouble sleeping at nighttime so he increased his tramadol to 100 mg at nighttime. Patient states over the weekend he has had a few episodes of feeling lightheaded, increasing reflux and noticed blood pressure was high so he was advised to come to emergency department. He denies any chest pain. Patient states he has not taken any tramadol in 2 days now. - Related Data Home Medications Medication Instructions Recorded Confirmed ALPRAZolam [Xanax] 0.25 mg PO BID PRN 01/12/19 10/18/23 Losartan Potassium 50 mg PO DAILY 01/11/20 10/18/23 hydroCHLOROthiazide 12.5 mg PO DAILY 01/11/20 10/18/23 Aspirin 81 mg PO DAILY 02/18/23 10/18/23 Metoprolol Succinate (ER) [Toprol 12.5 mg PO DAILY 02/18/23 10/18/23 Xl] Pantoprazole [Protonix] 40 mg PO BID 02/18/23 10/18/23 Ibuprofen [Motrin] 800 mg PO TID PRN 10/18/23 10/18/23 Vitamin D3(Unknown Dose) 1 tab PO DAILY 10/18/23 10/18/23 traMADol HCl [Ultram] 100 mg PO HS 10/18/23 10/18/23 Previous Rx's Medication Instructions Recorded Atorvastatin [Lipitor] 80 mg PO HS #90 tab 02/23/23 Allergies Allergy/AdvReac Type Severity Reaction Status Date / Time hydrocodone [From Vicodin] AdvReac Intermediate Nausea/Vomiting/diaphoresis, Rayshawn ified 10/18/23 13:38 hypotension, incontince lisinopril AdvReac edema Verified 10/18/23 13:38 Review of Systems ROS Statement: Those systems with pertinent positive or pertinent negative responses have been documented in the HPI. ROS Other: All systems not noted in ROS Statement are negative. Past Medical History Past Medical History: GERD/Reflux, Hyperlipidemia, Hypertension, Osteoarthritis (OA) Additional Past Medical History / Comment(s): hx difficulty swallowing- resolved, sternal pain -gerd, Chronic back pain/bulging discs, chronic bilateral knee pain, arthritis in back and bilateral knees. failed pre op stress test. chest pain History of Any Multi-Drug Resistant Organisms: None Reported Past Surgical History: Heart Catheterization With Stent, Orthopedic Surgery, Tonsillectomy Additional Past Surgical History / Comment(s): LEFT HAND SURG ( A CHILD), COLONOSCOPY, PAIN CLINIC PROCEDURES, L KNEE ARTHROSCOPY Past Anesthesia/Blood Transfusion Reactions: No Reported Reaction, Motion Sickness Additional Past Anesthesia/Blood Transfusion Reaction / Comment(s): occ motion sickness Date of Last Stent Placement:: 2022 Past Psychological History: Anxiety Smoking Status: Former smoker, Vaper Past Alcohol Use History: Heavy Past Drug Use History: None Reported - Past Family History Father History Unknown: Yes Additional Family Medical History / Comment(s): Pt never met his father. Mother Family Medical History: No Reported History Additional Family Medical History / Comment(s): Mother is healthy. General Exam Limitations: no limitations General appearance: alert, in no apparent distress Head exam: Present: atraumatic, normocephalic, normal inspection Eye exam: Present: normal appearance, PERRL, EOMI. Absent: scleral icterus, conjunctival injection, periorbital swelling ENT exam: Present: normal exam, mucous membranes moist Neck exam: Present: normal inspection, full ROM. Absent: tenderness, meningismus, lymphadenopathy Respiratory exam: Present: normal lung sounds bilaterally. Absent: respiratory distress, wheezes, rales, rhonchi, stridor Cardiovascular Exam: Present: regular rate, normal rhythm, normal heart sounds. Absent: systolic murmur, diastolic murmur, rubs, gallop, clicks GI/Abdominal exam: Present: soft, normal bowel sounds. Absent: distended, tenderness, guarding, rebound, rigid Neurological exam: Present: alert, oriented X3, CN II-XII intact Course Vital Signs 10/18/23 10/18/23 10/18/23 11:43 12:30 12:47 Temperature 98.2 F Pulse Rate 98 86 89 Respiratory 18 16 Rate Blood Pressure 154/105 137/91 137/97 O2 Sat by Pulse 98 97 97 Oximetry 10/18/23 10/18/23 10/18/23 13:00 13:28 14:00 Temperature Pulse Rate 89 89 85 Respiratory 19 18 16 Rate Blood Pressure 154/90 154/90 157/93 O2 Sat by Pulse 97 97 97 Oximetry 10/18/23 14:15 Temperature Pulse Rate 84 Respiratory 18 Rate Blood Pressure 136/92 O2 Sat by Pulse 95 Oximetry EKG Findings - EKG Comments: EKG Findings:: EKG performed at 11: 54 sinus rhythm rate of 85 ND 169 QRS 102 QT/QTc 368/410 - EKG Results: EKG: interpreted by JADE Medical Decision Making - Medical Decision Making Was pt. sent in by a medical professional or institution (, PA, FISH CUTTER, urgent care, hospital, or prison...) When possible be specific @ -PCP Did you speak to anyone other than the patient for history (EMS, parent, family, police, friend...)? What history was obtained from this source @ -No Did you review nursing and triage notes (agree or disagree)? Why? @ -I reviewed and agree with nursing and triage notes Were old charts reviewed (outside hosp., previous admission, EMS record, old EKG, old radiological studies, urgent care reports/EKG's, prison records)? Report findings @ -No old charts were reviewed Differential Diagnosis (chest pain, altered mental status, abdominal pain women, abdominal pain men, vaginal bleeding, weakness, fever, dyspnea, syncope, headache, dizziness, GI bleed, back pain, seizure, CVA, palpatations, mental health, musculoskeletal)? @ -Differential Dizziness: Benign paroxysmal positional Vertigo, Menieres disease, otitis media, acoustic neuroma, vertebrobasilar insufficiency, cerebellar stroke, encephalitis, hypovolemic, arrhythmia, coronary artery syndrome, anemia, this is not meant to be an all-inclusive list EKG interpreted by me (3pts min.). @ -As above X-rays interpreted by me (1pt min.). @ -Chest x-ray shows no acute cardiopulmonary process CT interpreted by me (1pt min.). @ -CT the angio chest negative for PE U/S interpreted by me (1pt. min.). @ -None done What testing was considered but not performed or refused? (CT, X-rays, U/S, labs)? Why? @ -None What meds were considered but not given or refused? Why? @ -None Did you discuss the management of the patient with other professionals (professionals i.e. , PA, FISH CUTTER, lab, RT, psych nurse, social staff worker, manager hematology, teacher, emergency communications officer, case aide)? Give summary @ -No Was smoking cessation discussed for >3mins.? @ -No Was critical care preformed (if so, how long)? @ -No Were there social determinants of health that impacted care today? How? (Homelessness, low income, unemployed, alcoholism, drug addiction, transportation, low edu. Level, literacy, decrease access to med. care, [facility], rehab)? @ -No Was there de-escalation of care discussed even if they declined (Discuss DNR or withdrawal of care, Hospice)? DNR status @ -No What co-morbidities impacted this encounter? (DM, HTN, Smoking, COPD, CAD, Cancer, CVA, ARF, Chemo, Hep., AIDS, mental health diagnosis, sleep apnea, morbid obesity)? @ -Hypertension CAD] Was patient admitted / discharged? Hospital course, mention meds given and r oute, prescriptions, significant lab abnormalities, going to OR and other pertinent info. @ -Patient presented for hypertension, lightheadedness. Patient's workup revealed elevated D-dimer CT angio was negative. Patient is currently asymptomatic he had no chest pain. He has had recent cardiac evaluation and cardiac cath with stenting prior to his surgery. He has follow-up with his [employer] patient states he is more symptomatic when his blood pressure is elevated he recently was discontinued on his amlodipine but will restart secondary to persistent hypertension patient was given strict return parameters patient agrees with plan of discharge Undiagnosed new problem with uncertain prognosis? @ -No Drug Therapy requiring intensive monitoring for toxicity (Heparin, Nitro, Insulin, Cardizem)? @ -No Were any procedures done? @ -No Diagnosis/symptom? @ -Hypertension, lightheadedness Acute, or Chronic, or Acute on Chronic? @ -Acute Uncomplicated (without systemic symptoms) or Complicated (systemic symptoms)? @ -complicated Side effects of treatment? @ -No Exacerbation, Progression, or Severe Exacerbation? @ -No Poses a threat to life or bodily function? How? (Chest pain, USA, PA, pneumonia, PE, COPD, DKA, ARF, appy, cholecystitis, CVA, Diverticulitis, Homicidal, Suicidal, threat to staff... and all critical care pts) @ -No - Lab Data Result diagrams: 10/18/23 12:27 10/18/23 12:27 Lab Results 10/18/23 10/18/23 10/18/23 Range/Units 12:27 12:27 12:27 WBC 6.9 (3.8-10.6) k/uL RBC 4.78 (4.30-5.90) m/uL Hgb 15.2 (13.0-17.5) gm/dL Hct 46.2 (39.0-53.0) % MCV 96.6 (80.0-100.0) fL MCH 31.9 (25.0-35.0) pg MCHC 33.0 (31.0-37.0) g/dL RDW 13.7 (11.5-15.5) % Plt Count 163 (150-450) k/uL MPV 9.5 Neutrophils % 63 % Lymphocytes % 22 % Monocytes % 10 % Eosinophils % 4 % Basophils % 1 % Neutrophils # 4.3 (1.3-7.7) k/uL Lymphocytes # 1.5 (1.0-4.8) k/uL Monocytes # 0.7 (0-1.0) k/uL Eosinophils # 0.3 (0-0.7) k/uL Basophils # 0.0 (0-0.2) k/uL PT 11.2 (10.0-12.5) sec INR 1.0 (<1.2) APTT 24.3 (22.0-30.0) sec D-Dimer 2.56 H (<0.60) mg/L FEU Sodium 141 (137-145) mmol/L Potassium 3.7 (3.5-5.1) mmol/L Chloride 107 (98-107) mmol/L Carbon Dioxide 23 (22-30) mmol/L Anion Gap 11 mmol/L BUN 9 (9-20) mg/dL Creatinine 0.83 (0.66-1.25) mg/dL Est GFR (CKD-EPI)AfAm >90 (>60 ml/min/1.73 sqM) Est GFR (CKD-EPI)NonAf >90 (>60 ml/min/1.73 sqM) Glucose 111 H (74-99) mg/dL Calcium 10.2 (8.4-10.2) mg/dL Magnesium 2.1 (1.6-2.3) mg/dL Total Bilirubin 0.8 (0.2-1.3) mg/dL AST 25 (17-59) U/L ALT 22 (4-49) U/L Alkaline Phosphatase 124 (38-126) U/L Troponin I (0.000-0.034) ng/mL NT-Pro-B Natriuret Pep 359 pg/mL Total Protein 7.6 (6.3-8.2) g/dL Albumin 4.9 (3.5-5.0) g/dL Lipase 54 (23-300) U/L / Range/Units 12:27 WBC (3.8-10.6) k/uL RBC (4.30-5.90) m/uL Hgb (13.0-17.5) gm/dL Hct (39.0-53.0) % MCV (80.0-100.0) fL MCH (25.0-35.0) pg MCHC (31.0-37.0) g/dL RDW (11.5-15.5) % Plt Count (150-450) k/uL MPV Neutrophils % % Lymphocytes % % Monocytes % % Eosinophils % % Basophils % % Neutrophils # (1.3-7.7) k/uL Lymphocytes # (1.0-4.8) k/uL Monocytes # (0-1.0) k/uL Eosinophils # (0-0.7) k/uL Basophils # (0-0.2) k/uL PT (10.0-12.5) sec INR (<1.2) APTT (22.0-30.0) sec D-Dimer (<0.60) mg/L FEU Sodium (137-145) mmol/L Potassium (3.5-5.1) mmol/L Chloride (98-107) mmol/L Carbon Dioxide (22-30) mmol/L Anion Gap mmol/L BUN (9-20) mg/dL Creatinine (0.66-1.25) mg/dL Est GFR (CKD-EPI)AfAm (>60 ml/min/1.73 sqM) Est GFR (CKD-EPI)NonAf (>60 ml/min/1.73 sqM) Glucose (74-99) mg/dL Calcium (8.4-10.2) mg/dL Magnesium (1.6-2.3) mg/dL Total Bilirubin (0.2-1.3) mg/dL AST (17-59) U/L ALT (4-49) U/L Alkaline Phosphatase (38-126) U/L Troponin I <0.012 (0.000-0.034) ng/mL NT-Pro-B Natriuret Pep pg/mL Total Protein (6.3-8.2) g/dL Albumin (3.5-5.0) g/dL Lipase (23-300) U/L Disposition Clinical Impression: Hypertension, Lightheaded Disposition: HOME SELF-CARE Condition: Stable Instructions (If sedation given, give patient instructions): Hypertension (ED) Additional Instructions: Please return to the Emergency Department if symptoms worsen or any other concerns. Is patient prescribed a controlled substance at d/c from ED?: No Referrals: Tmo Duong DO [Primary Care Provider] - 1-2 days Time of Disposition: 14:32
[2023-10-18 14:27] VITALS: BP 136/92; PULSE 84; RESP 18
== END 2023-10-18 14:42 | disposition home or self-care (01) ==
LOC: EC 11:35
DX: I10 Essential (primary) hypertension (principal); I25.10 Atherosclerotic heart disease of native coronary artery without angina pectoris; R79.1 Abnormal coagulation profile; F17.290 Nicotine dependence, other tobacco product, uncomplicated; Z79.82 Long term (current) use of aspirin; Z79.899 Other long term (current) drug therapy; Z88.5 Allergy status to narcotic agent; Z88.8 Allergy status to other drugs, medicaments and biological substances
CPT/HCPCS: 36415; 93005; 85379; 83880; 80053; 83690; 83735; 84484; 85025; 85610; 85730; 71046; 71275; 99284; Q9967

== ENCOUNTER → 2024-02-14 | Outpatient (CLI) | payer BC ==
--- NOTE | 2024-02-17 19:59 | MR ---
EXAMINATION TYPE: MR lumbar spine wo con DATE OF EXAM: 02/14/2024 7:10 PM CLINICAL INDICATION: Male, 63 years old with history of M54.16, M48.061; PHH, Low back pain into left side, prior back injections COMPARISON: None TECHNIQUE: Multi planar, multi sequence imaging was performed utilizing: T1-weighted, T2-weighted, a nd turbo inversion recovery imaging of the lumbar spine. IV Contrast: cc . (None if empty) FINDINGS: Alignment: The lumbar vertebral bodies have preserved heights and alignment. Cord: The conus medullaris and the distal spinal cord appear unremarkable with regards to their signa l intensity and morphology. Bones/Discs: Mild degeneration changes throughout the spine with osteophyte formation and facet joint arthropathy. Intervertebral disc signal is maintained. No abnormal inversion recovery signal to sugg est bony edema. T12-L1: No evidence of significant spinal canal stenosis or neural foraminal stenosis. L1-L2: No evidence of significant spinal canal stenosis or neural foraminal stenosis. L2-L3: No evidence of significant spinal canal stenosis. Facet joint arthropathy mild bilateral neura l foraminal stenosis. L3-L4: Disc bulge and facet joint arthropathy result in mild spinal canal and moderate bilateral neur al foraminal stenosis. L4-L5: Disc bulge and facet joint arthropathy result in mild spinal canal and moderate to severe bila teral neural foraminal stenosis. Trace bilateral facet joint effusions. L5-S1: The disc has a rounded posterior morphology without significant spinal canal stenosis. Facet j oint arthropathy with severe bilateral neural foraminal stenosis. Trace bilateral facet joint effusio ns. No significant spinal canal or neural foraminal stenosis in the remainder of the visualized levels. Other findings: None. IMPRESSION: 1. No definitive evidence of disc herniation or significant spinal canal stenosis. 2. Multilevel disc degeneration with associated osteoarthritic changes. Neural foraminal stenosis wo rse at L5-S1 with severe and moderate to severe bilateral L4-L5. Findings have progressed from prior exam slightly. [facility], , 02/17/2024 7:57 PM
== END ==
LOC: RADMRIMAIN 18:30
PROVIDERS: ATTEND Orthopaedic Surgery
DX: M48.061 Spinal stenosis, lumbar region without neurogenic claudication (principal); M51.16 Intervertebral disc disorders with radiculopathy, lumbar region; M47.896 Other spondylosis, lumbar region
CPT/HCPCS: 72148

== ENCOUNTER 2024-03-06 12:26 | Emergency (ER) | payer BC ==
[2024-03-06 12:40] VITALS: TEMP 97.4
--- NOTE | 2024-03-06 13:10 | ED ---
General Adult HPI - General Chief complaint: Shortness of Breath Stated complaint: extremity issues/unable to move Time Seen by Provider: 03/06/24 12:40 Source: patient, RN notes reviewed, old records reviewed Mode of arrival: ambulatory Limitations: no limitations - History of Present Illness Initial comments: This is a 63-year-old male who presents to the emergency department with a past medical history significant for a stent in his LAD and he states that he has another area that 60% stenotic. Patient states he also has a history of vertigo. Patient states today he started having dizziness and became very weak in the legs and was having a difficult time standing. Patient did not feel like he was going to pass out but fall over. Patient states he also was been experiencing some chest heaviness and his heart rate was 115 beats a minute wh ich was concerning to him as well. Patient Nuys any fever chills or cough. Patient denies any back pain. Patient denies any focal numbness or weakness. Patient denies a headache. Patient states this does feel like a vertigo episode with panic aside from the chest heaviness - Related Data Home Medications Medication Instructions Recorded Confirmed ALPRAZolam [Xanax] 0.25 mg PO BID PRN 01/12/19 03/06/24 Losartan Potassium 50 mg PO DAILY 01/11/20 03/06/24 hydroCHLOROthiazide 12.5 mg PO DAILY 01/11/20 03/06/24 Metoprolol Succinate (ER) [Toprol 12.5 mg PO DAILY 02/18/23 03/06/24 Xl] Ibuprofen [Motrin] 800 mg PO TID PRN 10/18/23 03/06/24 traMADol HCl [Ultram] 50 - 100 mg PO Q8H PRN 10/18/23 03/06/24 Famotidine [Pepcid] 40 mg PO HS 03/06/24 03/06/24 Lansoprazole [Prevacid] 30 mg PO BID 03/06/24 03/06/24 amLODIPine [Norvasc] 10 mg PO HS 03/06/24 03/06/24 Previous Rx's Medication Instructions Recorded Atorvastatin [Lipitor] 80 mg PO HS #90 tab 02/23/23 Meclizine [Antivert] 25 mg PO TID PRN #10 tab 03/06/24 Allergies Allergy/AdvReac Type Severity Reaction Status Date / Time hydrocodone [From Vicodin] AdvReac Intermediate Nausea/Vomiting/diaphoresis, Verified 03/06/24 13:35 hypotension, incontince lisinopril AdvReac edema Verified 03/06/24 13:35 Review of Systems ROS Statement: Those systems with pertinent positive or pertinent negative responses have been documented in the HPI. ROS Other: All systems not noted in ROS Statement are negative. Past Medical History Past Medical History: GERD/Reflux, Hyperlipidemia, Hypertension, Osteoarthritis (OA) Additional Past Medical History / Comment(s): hx difficulty swallowing- resolved, sternal pain -gerd, Chronic back pain/bulging discs, chronic bilateral knee pain, arthritis in back and bilateral knees. failed pre op stress test. chest pain History of Any Multi-Drug Resistant Organisms: None Reported Past Surgical History: Heart Catheterization With Stent, Orthopedic Surgery, Tonsillectomy Additional Past Surgical History / Comment(s): LEFT HAND SURG ( A CHILD), COLONOSCOPY, PAIN CLINIC PROCEDURES, L KNEE ARTHROSCOPY Past Anesthesia/Blood Transfusion Reactions: No Reported Reaction, Motion Sickness Additional Past Anesthesia/Blood Transfusion Reaction / Comment(s): occ motion sickness Date of Last Stent Placement:: 2022 Past Psychological History: Anxiety Smoking Status: Former smoker, Vaper Past Alcohol Use History: Heavy Past Drug Use History: Marijuana - Past Family History Father History Unknown: Yes Additional Family Medical History / Comment(s): Pt never met his father. Mother Family Medical History: No Reported History Additional Family Medical History / Comment(s): Mother is healthy. General Exam - General Exam Comments Initial Comments: GENERAL: Patient is well-developed and well-nourished. Patient is nontoxic and well- hydrated and is in mild distress. ENT: Neck is soft and supple. No significant lymphadenopathy is noted. Oropharynx is clear. Moist mucous membranes. Neck has full range of motion without eliciting any pain. EYES: The sclera were anicteric and conjunctiva were pink and moist. Extraocular movements were intact and pupils were equal round and reactive to light. Eyelids were unremarkable. PULMONARY: Unlabored respirations. Good breath sounds bilaterally. No audible rales rhonchi or wheezing was noted. CARDIOVASCULAR: There is a regular rate and rhythm without any murmurs gallops or rubs. ABDOMEN: Soft and nontender with normal bowel sounds. SKIN: Skin is clear with no lesions or rashes and otherwise unremarkable. NEUROLOGIC: Patient is alert and oriented x3. Cranial nerves II through XII are grossly intact. Motor and sensory are also intact. Normal speech, volume and content. Symmetrical smile. MUSCULOSKELETAL: Normal extremities with adequate strength and full range of motion. LYMPHATICS: No significant lymphadenopathy is noted PSYCHIATRIC: There is mildly anxious Limitations: no limitations Course Vital Signs 03/06/24 03/06/24 12:35 13:52 Temperature 97.4 F L Pulse Rate 121 H 88 Respiratory 34 H 18 Rate Blood Pressure 132/83 141/88 O2 Sat by Pulse 100 Oximetry Medical Decision Making - Medical Decision Making I interpreted EKG myself. EKG shows sinus tachycardia at 120 bpm FL interval is 176 QRS is 108 QT interval 329 QTc is 400. Patient's EKG shows a PVC but no ST segment elevation. Was pt. sent in by a medical professional or institution (, [facility], OWNER, urgent care, hospital, or skilled nursing...) When possible be specific @ -No Did you speak to anyone other than the patient for history (EMS, parent, family, police, friend...)? What history was obtained from this source @ -No Did you review nursing and triage notes (agree or disagree)? Why? @ -I reviewed and agree with nursing and triage notes Were old charts reviewed (outside hosp., previous admission, EMS record, old EKG, old radiological studies, urgent care reports/EKG's, skilled nursing records)? Report findings @ -No old charts were reviewed Differential Diagnosis? @ -Differential Dizziness: Benign paroxysmal positional Vertigo, Meniere's disease, otitis media, acoustic neuroma, vertebrobasilar insufficiency, cerebellar stroke, encephalitis, hypovolemic, arrhythmia, coronary artery syndrome, anemia, this is not meant to be an all-inclusive list EKG interpreted by me (3pts min.). @ -As above X-rays interpreted by me (1pt min.). @ -None done CT interpreted by me (1pt min.). @ -None done U/S interpreted by me (1pt. min.). @ -None done What testing was considered but not performed or refused? (CT, X-rays, U/S, labs)? Why? @ -None What meds were considered but not given or refused? Why? @ -None Did you discuss the management of the patient with other professionals (pr ofessionals i.e. , PA, OWNER, lab, RT, psych nurse, psychiatric social worker supervisor, skiver heel tap, teacher, special loan officer, cyanide case hardener)? Give summary @ -No Was smoking cessation discussed for >3mins.? @ -No Was critical care preformed (if so, how long)? @ -No Were there social determinants of health that impacted care today? How? (Homelessness, low income, unemployed, alcoholism, drug addiction, transportation, low edu. Level, literacy, decrease access to med. care, senior care, rehab)? @ -No Was there de-escalation of care discussed even if they declined (Discuss DNR or withdrawal of care, Hospice)? DNR status @ -No What co-morbidities impacted this encounter? (DM, HTN, Smoking, COPD, CAD, Cancer, CVA, ARF, Chemo, Hep., AIDS, mental health diagnosis, sleep apnea, morbid obesity)? @ -None Was patient admitted / discharged? Hospital course, mention meds given and route, prescriptions, significant lab abnormalities, going to OR and other pertinent info. @ -Patient received Antivert and Valium. And I went back in after he also received some fluids and reevaluated him he no longer had any chest discomfort or dizziness and wanted to go home. I discussed staying in the hospital and patient insists on going home. I told him he would have to sign out AGAINST MEDICAL ADVICE because I was worried because of his heart history that he might have been his heart however he decided to sign out AMA. Undiagnosed new problem with uncertain prognosis? @ -No Drug Therapy requiring intensive monitoring for toxicity (Heparin, Nitro, Insulin, Cardizem)? @ -No Were any procedures done? @ -No Diagnosis/symptom? @ -Chest pain Acute, or Chronic, or Acute on Chronic? @ -Acute Uncomplicated (without systemic symptoms) or Complicated (systemic symptoms)? @ -Default Side effects of treatment? @ -No Exacerbation, Progression, or Severe Exacerbation? @ -No Poses a threat to life or bodily function? How? (Chest pain, [place], [place], pneumonia, PE, COPD, DKA, ARF, appy, cholecystitis, CVA, Diverticulitis, Homicidal, Suicidal, threat to staff... and all critical care pts) @ -Yes this could lead to an [place] and Diagnosis/symptom? @ -Vertigo Acute, or Chronic, or Acute on Chronic? @ -Acute Uncomplicated (without systemic symptoms) or Complicated (systemic symptoms)? @ -Complicated Side effects of treatment? @ -None Exacerbation, Progression, or Severe Exacerbation] @ -No Poses a threat to life or bodily function? @ -No - Lab Data Result diagrams: 03/06/24 13:43 03/06/24 13:43 Lab Results 03/06/24 03/06/24 03/06/24 Range/Units 13:43 13:43 13:43 WBC 9.8 (3.8-10.6) k/uL RBC 4.93 (4.30-5.90) m/uL Hgb 15.7 (13.0-17.5) gm/dL Hct 47.4 (39.0-53.0) % MCV 96.2 (80.0-100.0) fL MCH 32.0 (25.0-35.0) pg MCHC 33.2 (31.0-37.0) g/dL RDW 13.4 (11.5-15.5) % Plt Count 224 (150-450) k/uL MPV 8.1 Neutrophils % 76 % Lymphocytes % 14 % Monocytes % 7 % Eosinophils % 1 % Basophils % 0 % Neutrophils # 7.5 (1.3-7.7) k/uL Lymphocytes # 1.4 (1.0-4.8) k/uL Monocytes # 0.7 (0-1.0) k/uL Eosinophils # 0.1 (0-0.7) k/uL Basophils # 0.0 (0-0.2) k/uL PT 10.5 (10.0-12.5) sec INR 0.9 (<1.2) APTT 21.4 L (22.0-30.0) sec Sodium 140 (137-145) mmol/L Potassium 4.0 (3.5-5.1) mmol/L Chloride 103 (98-107) mmol/L Carbon Dioxide 23 (22-30) mmol/L Anion Gap 14 mmol/L BUN 18 (9-20) mg/dL Creatinine 0.99 (0.66-1.25) mg/dL Est GFR (CKD-EPI)AfAm >90 (>60 ml/min/1.73 sqM) Est GFR (CKD-EPI)NonAf 82 (>60 ml/min/1.73 sqM) Glucose 120 H (74-99) mg/dL Calcium 10.4 H (8.4-10.2) mg/dL Magnesium 2.1 (1.6-2.3) mg/dL Total Bilirubin 0.9 (0.2-1.3) mg/dL AST 23 (17-59) U/L ALT 22 (4-49) U/L Alkaline Phosphatase 80 (38-126) U/L Troponin I (0.000-0.034) ng/mL Total Protein 8.2 (6.3-8.2) g/dL Albumin 5.4 H (3.5-5.0) g/dL 03/06/24 Range/Units 13:43 WBC (3.8-10.6) k/uL RBC (4.30-5.90) m/uL Hgb (13.0-17.5) gm/dL Hct (39.0-53.0) % MCV (80.0-100.0) fL MCH (25.0-35.0) pg MCHC (31.0-37.0) g/dL RDW (11.5-15.5) % Plt Count (150-450) k/uL MPV Neutrophils % % Lymphocytes % % Monocytes % % Eosinophils % % Basophils % % Neutrophils # (1.3-7.7) k/uL Lymphocytes # (1.0-4.8) k/uL Monocytes # (0-1.0) k/uL Eosinophils # (0-0.7) k/uL Basophils # (0-0.2) k/uL PT (10.0-12.5) sec INR (<1.2) APTT (22.0-30.0) sec Sodium (137-145) mmol/L Potassium (3.5-5.1) mmol/L Chloride (98-107) mmol/L Carbon Dioxide (22-30) mmol/L Anion Gap mmol/L BUN (9-20) mg/dL Creatinine (0.66-1.25) mg/dL Est GFR (CKD-EPI)AfAm (>60 ml/min/1.73 sqM) Est GFR (CKD-EPI)NonAf (>60 ml/min/1.73 sqM) Glucose (74-99) mg/dL Calcium (8.4-10.2) mg/dL Magnesium (1.6-2.3) mg/dL Total Bilirubin (0.2-1.3) mg/dL AST (17-59) U/L ALT (4-49) U/L Alkaline Phosphatase (38-126) U/L Troponin I <0.012 (0.000-0.034) ng/mL Total Protein (6.3-8.2) g/dL Albumin (3.5-5.0) g/dL Disposition Clinical Impression: Chest pain, Vertigo Disposition: LEFT AGAINST MEDICAL ADVICE Prescriptions: Meclizine [Antivert] 25 mg PO TID PRN #10 tab PRN Reason: Vertigo Is patient prescribed a controlled substance at d/c from ED?: No Referrals: Tom Duong DO [Primary Care Provider] - 1-2 days Time of Disposition: 16:01
--- NOTE | 2024-03-06 13:27 | CT ---
EXAMINATION TYPE: CT brain wo con CT DLP: 1170.4 mGycm, Automated exposure control for dose reduction was used. DATE OF EXAM: 03/06/2024 1:19 PM COMPARISON: None. CLINICAL INDICATION:Male, 63 years old with history of Dizziness, dizziness, weakness and nausea TECHNIQUE: Brain: Multiple axial CT images of the brain were obtained without IV contrast. . Coronal and sagitta l reformats reviewed. FINDINGS: Brain: Extra-axial spaces: No abnormal extra-axial fluid collections. Ventricular system: Within normal limits Cerebral parenchyma: No acute intraparenchymal hemorrhage or mass effect. The harrell-white junction is well differentiated. Scattered hypoattenuating areas are seen within the periventricular white matte r. Cerebellum: Unremarkable. Mass effect: No evidence of midline shift. Intracranial vasculature: unremarkable Soft tissues: Normal. Calvarium/osseous structures: No depressed skull fracture. Paranasal sinuses and mastoid air cells: Mastoid air cells are clear. Small mucous retention cyst wit hin left maxillary sinus. Mild mucosal thickening in the inferior right maxillary sinus. Remaining pa ranasal sinuses are clear. Visualized orbits: Orbital contents are intact. IMPRESSION: 1. No acute intracranial process. 2. Nonspecific white matter changes, likely secondary to chronic small vessel ischemic disease. [facility], , 03/06/2024 1:24 PM
--- NOTE | 2024-03-06 13:32 | XR ---
EXAMINATION TYPE: XR chest 2V DATE OF EXAM: 03/06/2024 COMPARISON: 10/18/2019 CLINICAL INDICATION: Male, 63 years old with history of Chest Pain; , TECHNIQUE: XR chest 2V views of the chest. FINDINGS: The lungs are clear and there is no pneumothorax, pleural effusion, or focal pneumonia. Mild cardiom egaly but no overt failure. Osseous structures demonstrate hypertrophic and degenerative changes of t he spine. Mild prominence of right IMPRESSION: 1. No acute process. 2. Cardiomegaly with mildly prominent right hilum likely related to apical lordotic positioning. Shor t-term follow-up PA and lateral view of the chest recommended. [facility], , 03/06/2024 1:29 PM
[2024-03-06 13:52] LABS: Basophils % (A) 0 %; Eosinophils # (A) 0.1 k/uL (0-0.7); Eosinophils % (A) 1 %; HCT 47.4 % (39.0-53.0); HGB 15.7 gm/dL (13.0-17.5); Lymphocytes # (A) 1.4 k/uL (1.0-4.8); Lymphocytes % (A) 14 %; MCHC 33.2 g/dL (31.0-37.0); MCV 96.2 fL (80.0-100.0); Mean Platelet Volume 8.1; Monocytes # (A) 0.7 k/uL (0-1.0); Monocytes % (A) 7 %; Neutrophils # (A) 7.5 k/uL (1.3-7.7); Neutrophils % (A) 76 %; Platelet Count 224 k/uL (150-450); RBC 4.93 m/uL (4.30-5.90); RDW 13.4 % (11.5-15.5); WBC 9.8 k/uL (3.8-10.6)
[2024-03-06 13:54] VITALS: BP 141/88; PULSE 88; RESP 18
[2024-03-06] MEDS: MECLIZINE 25 MG TAB PO STA (13:54)
[2024-03-06 14:08] LABS: ALT 22 U/L (4-49); AST 23 U/L (17-59); African American GFR (CKD) >90 (>60 ml/min/1.73 sqM); Albumin 5.4 g/dL (3.5-5.0); Alkaline Phosphatase 80 U/L (38-126); Anion Gap 14 mmol/L; Blood Urea Nitrogen 18 mg/dL (9-20); Calcium 10.4 mg/dL (8.4-10.2); Carbon Dioxide 23 mmol/L (22-30); Chloride 103 mmol/L (98-107); Glucose 120 mg/dL (74-99); Magnesium 2.1 mg/dL (1.6-2.3); Non-African American GFR(CKD) 82 (>60 ml/min/1.73 sqM); Sodium 140 mmol/L (137-145); Total Bilirubin 0.9 mg/dL (0.2-1.3); Total Protein 8.2 g/dL (6.3-8.2)
[2024-03-06 15:12] LABS: INR 0.9 (<1.2); Prothrombin Time 10.5 sec (10.0-12.5)
[2024-03-06 15:17] LABS: Partial Thromboplastin Time 21.4 sec (22.0-30.0)
== END 2024-03-06 16:01 | disposition left against medical advice (07) ==
LOC: EC 12:26
DX: R07.89 Other chest pain (principal); R42 Dizziness and giddiness; F17.290 Nicotine dependence, other tobacco product, uncomplicated; Z88.5 Allergy status to narcotic agent; Z88.8 Allergy status to other drugs, medicaments and biological substances
CPT/HCPCS: 36415; 93005; 80053; 83735; 84484; 85025; 85610; 85730; 71046; 70450; 99285; 96374; J3360

== ENCOUNTER → 2024-04-12 | Day surgery (SDC) | payer BC ==
[~2024-04-12] MED LIST changes: +ALPRAZolam 0.25 MG TAB PO PRN; +ALPRAZolam 0.5 MG TAB PO PRN; +ASPIRIN 81 MG PO SCH; +ATORVASTATIN 80 MG TAB PO SCH; +ATROPINE SULFATE 0.1 MG/ML 10ML SYRINGE IV PRN; +CHOLECALCIFEROL 25 MCG (1000 IU) TABLET PO SCH; -HYDROmorphone 0.5 MG/0.5 ML SYRINGE IVP PRN; -LIDOCAINE 1% (10MG/ML) FOR IV START INTRADERMA PRN; +LOSARTAN 50 MG TAB PO SCH; +MAG HYDROX/AL HYDROX/SIMETH 30 ML CUP PO PRN; +MECLIZINE 25 MG TAB PO PRN; +METOPROLOL SUCCINATE (ER) 25 MG TAB.ER.24H PO SCH; +NITROGLYCERIN SL TABS 0.4 MG TAB SUBLINGUAL PRN; +NON FORMULARY DRUG (Lansoprazole [Prevacid] 30 MG Capsule.Dr) PO SCH; +RANOLAZINE 500 MG TAB.ER.12H PO SCH; +RX INFO: IV CONTRAST WAS GIVEN 1 EACH MISC MISCELLANE PRN; +TICAGRELOR 90 MG TAB PO SCH; -TRANEXAMIC 1,000 MG/100ML-NACL 1,000 MG in SALINE 1 100ML.BAG IVPB PRN; +VORTIOXETINE HYDROBROMIDE 10 MG PO SCH; +ZOLPIDEM 5 MG TAB PO PRN; +amLODIPine 10 MG TAB PO SCH; +hydroCHLOROthiazide 12.5 MG CAP PO SCH
[2024-04-12] MEDS: IV FLUID CONTINUATION 1,000 ML IV ONE (08:43)
[2024-04-12] MEDS: SODIUM CHLORIDE 0.9% 1,000 ML in EMPTY BAG 1 BAG IV SCH (09:17)
[2024-04-12 09:29] VITALS: TEMP 98.4
[2024-04-12] MEDS: fentaNYL (PF) 50 MCG/1 ML VIAL IVP ONE (10:05)
[2024-04-12] MEDS: MIDAZOLAM 2 MG/2 ML VIAL IVP ONE (10:05)
[2024-04-12] MEDS: LIDOCAINE 1% INJ 10MG/ML (20 ML MDV) SQ ONE (10:06)
[2024-04-12] MEDS: VERAPAMIL SYRINGE (5 MG/10 ML) INTRAARTER ONE (10:09)
[2024-04-12] MEDS: HEPARIN SODIUM,PORCINE (1 ML) 2,500 UNIT in SODIUM CHLORIDE 0.9% 250 ML IRRIGATION PRN (10:10)
[2024-04-12] MEDS: HEPARIN SODIUM,PORCINE 10,000 UNIT in SODIUM CHLORIDE 0.9% 1,000 ML IRRIGATION PRN (10:10)
[2024-04-12] MEDS: HEPARIN SODIUM 1,000 UN/ML (10ML VL) IVP ONE ×2 (10:12→11:14)
[2024-04-12] MEDS: TICAGRELOR 90 MG TAB PO ONE (10:42)
[2024-04-12] MEDS: NITROGLYCERIN 1000MCG/10ML SYRINGE INTRACORON ONE (11:03)
[2024-04-12] MEDS: IOPAMIDOL-370 100ML BTL INJ ONE ×2 (11:12→11:38)
[2024-04-12] MEDS: PHENYLEPHRINE-0.9% NACL SYG 1,000 MCG/10 ML SYRINGE IVP ONE (11:30)
[2024-04-12] MEDS: SODIUM CHLORIDE 0.9% 1,000 ML IV ONE (11:42)
--- NOTE | 2024-04-12 12:34 | P.PRCINT ---
Percutaneous Coronary Int. - Percutaneous Coronary Intervention Percutaneous Coronary Intervention: PROCEDURES PERFORMED: Left heart catheterization, bilateral coronary angiography, ultrasound guided arterial access, RFR RCA and LAD, PCI mid to distal LAD with overlapping 3.0 x 33mm, 2.75 x 38mm, 2.75 x 23mm Xience SHILO, post dilated with a 3.5mm NC balloon, IVUS LAD INDICATION: Abnormal stress test, NYHA class 3 symptoms CONSENT:I have discussed the risks, benefits and alternative therapies for the above-mentioned procedure and for both sedation/analgesia as well as necessary blood product administration, if indicated, as they pertain to this patient. The patient has indicated understanding and acceptance of the risks and procedures discussed. PROCEDURE: After the risks, benefits and alternatives of the above mentioned procedure explained in detail with the patient, informed consent was obtained. Patient was taken to the catheterization lab and prepped and draped in usual fashion. Ultrasound guidance was used to assess for arterial access. 1% lidocaine was used to anesthetize the right radial artery. A 6-[place] sheath was placed in the right radial artery using modified Seldinger technique and ultrasound guidance. Left coronary angiography was performed with a 5-[place] JL 3.5 catheter and right coronary angiography was performed with a 6-[place] Al 1.0 catheter in various views. A 6-[place] AL1 catheter was inserted into the left ventricle and pressure measurements were obtained. Patient had ischemia in the inferior wall and stress testing however may have been related to wraparound LAD and diaphragmatic attenuation artifact versus RCA disease. Therefore the decision was made to perform functional assessment of both RCA and LAD. Using a 6-[place] AL 1.0 catheter, a 0.014 pressure wire was advanced in the proximal RCA and normalized. It was then advanced into the mid to distal RCA. RFR (iFR) was normal at 0.94. Next initially using a EBU3.5 guide catheter A0.014 pressure wire was advanced in the proximal left main and normalized. It was then advanced into the mid to distal LAD and RFR was abnormal at 0.81. Therefore the decision was made to perform PCI of LAD. The EBU 3.5 guide was not long enough and therefore this was changed out for an EBU 4.0 guide. A 0.014 BMW wire was advanced the distal LAD. Predilation was performed with a 3.0 balloon. Intravascular ultrasound showed diffuse disease with initial feeling of possibly performing landing zone of the mid LAD. A 2.75 x 38 mm drug-eluting stent was placed on mid LAD. An additional 3.0 x 33 mm drug-eluting stent was placed overlapping the prior proximal LAD stents with the mid LAD stents. This was postdilated with a 3.5 mm noncompliant balloon. There was still more diffuse disease distally and therefore this was covered with a 2.75 x 23 mm drug-eluting stents. The overlap was postdilated. Final angiograms were performed. Pre-intervention there was 80% mid LAD stenosis and ARNOLD-3 flow and postintervention there was less than 10% stenosis with ARNOLD 3 flow. The right radial sheath was removed and a TR band was placed with hemostasis achieved. The patient tolerated the procedure well. Patient was transported back to the post catheterization holding area in stable condition. Conscious Sedation: Patient was monitored under the direct supervision of myself for conscious sedation using Versed and fentanyl for a total duration of 94 minutes HEMODYNAMICS: aorta: 110/72 LV: 108/8, LVEDP 18 SELECTIVE CORONARY ARTERIOGRAPHY: LEFT MAIN: The left main is a large caliber vessel which bifurcates into the LAD and circumflex. There is no significant stenosis. LEFT ANTERIOR DESCENDING CORONARY ARTERY: LAD is a large caliber vessel which wraps around to the apex. There is a proximal LAD stent which is patent. There is diffuse mid LAD 70% stenosis followed by diffuse 40-50% stenosis in a more focal mid LAD 80% stenosis followed by 50-60% stenosis. Diagonal 1 is small to moderate caliber and has a proximal 40-50% stenosis. Diagonal 2 and 3 are small caliber with proximal 50% stenosis.. LEFT CIRCUMFLEX CORONARY ARTERY: Left circumflex is a moderate to large caliber vessel with mild 20-30% stenosis. It gives off a PLV branch and is codominant. OM1 is small caliber with diffuse 60-70% proximal stenosis.. RIGHT CORONARY ARTERY: The right coronary artery is a large caliber vessel which gives off a PDA branch and is co dominant vessel. There is diffuse proximal 20- 30% stenosis followed by a more focal 50-60% mid to distal RCA stenosis. FINAL IMPRESSION: 1. CAD as described above including mid LAD 70%, 80% stenosis, diagonal 140-50% stenosis, small caliber OM1 60-70% stenosis, circumflex 20-30% stenosis and mid RCA 50-60% stenosis 2. Mildly elevated left sided filling pressures 3. RFR (iFR) normal of RCA and abnormal of the LAD 4. S/p PCI mid to distal LAD with overlapping 3.0 x 33mm, 2.75 x 38mm, 2.75 x 23mm Xience SHILO, post dilated with a 3.5mm NC balloon PLAN: 1. Aggressive risk factor modification per most recent ACC/AHA guidelines. 2. Continue dual antiplatelets with aspirin and Brillinta for 6 months 3. Goal LDL < 70
[2024-04-12] MEDS: ASPIRIN 325 MG TAB PO STA (16:11)
[2024-04-12] MEDS: ATORVASTATIN 80 MG TAB PO STA (16:11)
[2024-04-12 16:21] VITALS: BP 117/66; PULSE 78; RESP 14
== END ==
LOC: CATHCVL 08:43
PROVIDERS: ATTEND Internal Medicine
DX: I25.10 Atherosclerotic heart disease of native coronary artery without angina pectoris (principal); E78.2 Mixed hyperlipidemia; I10 Essential (primary) hypertension; F10.10 Alcohol abuse, uncomplicated; I77.819 Aortic ectasia, unspecified site; F17.220 Nicotine dependence, chewing tobacco, uncomplicated; Z95.5 Presence of coronary angioplasty implant and graft; Z88.5 Allergy status to narcotic agent; Z88.6 Allergy status to analgesic agent; Z79.82 Long term (current) use of aspirin; Z79.02 Long term (current) use of antithrombotics/antiplatelets; Z79.899 Other long term (current) drug therapy
CPT/HCPCS: 92978; 93458; 93799; 99152; 99153; C9600; J2250; J1644 ×3; J2003; Q9967; J3010; J2371; J2305